=== PATIENT | female | born 1970 | race Caucasian/White ===

== ENCOUNTER → 2020-03-05 | Outpatient (CLI) | payer SELFPAY ==
[2019-08-24 11:08] VITALS: BMI 43.2
--- NOTE | 2020-03-05 12:55 | ECHOD_ITS ---
Reason For Study: Murmur Procedure This was a 2D Doppler, Color Flow transthoracic echocardiogram. Exam performed in department. Left Ventricle Normal LV size. Left ventricular systolic function is normal. The estimated ejection fraction is 55 %. Normal diastology for age. No regional wall motion abnormalities noted. Right Ventricle Normal RV size. Normal systolic function. Atria Normal left atrium. Normal right atrium. Mitral Valve Normal mitral valve. Mild (1+) mitral valve insufficiency. Tricuspid Valve Normal tricuspid valve. Aortic Valve Normal aortic valve. Trisinus/trileaflet aortic valve. Pulmonic Valve Normal pulmonic valve. Great Vessels Normal aortic root. The pulmonary artery is normal size. Normal inferior vena cava. Pericardium/Pleural No pericardial effusion. MMode/2D Measurements & Calculations LVIDd: 4.6 cm IVSd: 1.0 cm Ao root diam: 3.6 cm LVIDs: 2.4 cm LVPWd: 1.1 cm RVDd: 3.4 cm FS: 48.5 % LAV(MOD-bp): 51.0 ml EDV(MOD-sp4): 92.0 ml EDV(MOD-sp2): 86.0 ml LAV(MOD-bp) Indexed: 27.3 ml/m2 ESV(MOD-sp4): 33.1 ml EF(MOD-sp2): 57.0 % LAV(MOD-sp2): 40.3 ml EF(MOD-sp4): 64.0 % LAV(MOD-sp4): 55.6 ml SV(MOD-sp4): 58.8 ml SV(MOD-sp2): 49.0 ml LA A4 area: 19.4 cm2 LA dimension(2D): 3.7 cm RA A4 area: 16.8 cm2 Doppler Measurements & Calculations MV E max shaun: 109.2 cm/sec Lat Peak E' Shaun: 11.1 cm/sec Med Peak E' Shaun: 10.5 cm/sec MV A max shaun: 75.9 cm/sec E/E' lat: 9.9 E/E' med: 10.4 MV E/A: 1.4 Ao V2 max: 172.7 cm/sec LV V1 max: 136.1 cm/sec PA V2 max: 93.9 cm/sec Ao max P.9 mmHg LV V1 max P.4 mmHg Interpretation Summary Normal LV size. Left ventricular systolic function is normal. The estimated ejection fraction is 55 %. Normal diastology for age. Structurally normal valves. Ordering Physician: Ramy Herrera Referring Physician: Ahsan Freeman Performed By: Erica Garduno RDCS
== END | disposition home or self-care (01) ==
PROVIDERS: PCP Family Medicine; Referring Provider Internal Medicine Cardiovascular Disease; Visit Provider Internal Medicine Cardiovascular Disease
DX: R01.1 Cardiac murmur, unspecified (principal); I10 Essential (primary) hypertension
CPT/HCPCS: 93306

== ENCOUNTER → 2020-09-10 14:12 | Outpatient (CLI) | payer SELFPAY ==
[2020-08-27 09:15] VITALS: BMI 43.2
[2020-09-10 16:11] LABS: Anion Gap 6 (5-15); BUN 14 mg/dL (7-18); BUN/Creat Ratio 17.3 RATIO (10-20); Chloride 105 mmol/L (98-107); Creatinine, Serum 0.81 mg/dL (0.55-1.02); EST Glomerular Filtration Rate 79 mL/min (>60); Est Glom Filt Rate - Afr Amer 96 mL/min (>60); Glucose 118 mg/dL (74-106); Potassium 3.2 mmol/L (3.5-5.1); Sodium Level 138 mmol/L (136-145)
[2020-09-20 20:08] LABS: Renin, Plasma 0.814 ng/mL/hr (0.167-5.380)
[2020-09-20 20:41] LABS: Aldosterone, Serum 7.3 ng/dL (0.0-30.0)
== END ==
PROVIDERS: PCP Family Medicine; Referring Provider Internal Medicine Cardiovascular Disease; Visit Provider Internal Medicine Cardiovascular Disease
DX: E87.6 Hypokalemia (principal); I10 Essential (primary) hypertension
CPT/HCPCS: 36415; 80048; 82088; 84244

== ENCOUNTER → 2020-09-19 15:38 | Outpatient (CLI) | payer SELFPAY ==
[2020-08-27 09:15] VITALS: BMI 43.2
[2020-09-19 19:09] LABS: Anion Gap 7 (5-15); BUN 17 mg/dL (7-18); Calcium,Total 8.8 mg/dL (8.5-10.1); Chloride 107 mmol/L (98-107); Creatinine, Serum 0.81 mg/dL (0.55-1.02); EST Glomerular Filtration Rate 79 mL/min (>60); Est Glom Filt Rate - Afr Amer 96 mL/min (>60); Glucose 90 mg/dL (74-106); Potassium 3.8 mmol/L (3.5-5.1); Sodium Level 138 mmol/L (136-145)
== END ==
PROVIDERS: PCP Family Medicine; Referring Provider Internal Medicine Cardiovascular Disease; Visit Provider Internal Medicine Cardiovascular Disease
DX: E87.6 Hypokalemia (principal)
CPT/HCPCS: 36415; 80048

== ENCOUNTER → 2020-10-07 13:52 | Outpatient (CLI) | payer SELFPAY ==
[2020-08-27 09:15] VITALS: BMI 43.2
[2020-10-07 15:55] LABS: Anion Gap 7 (5-15); BUN 18 mg/dL (7-18); BUN/Creat Ratio 23.2 RATIO (10-20); Calcium,Total 8.8 mg/dL (8.5-10.1); Chloride 104 mmol/L (98-107); Creatinine, Serum 0.78 mg/dL (0.55-1.02); EST Glomerular Filtration Rate 83 mL/min (>60); Est Glom Filt Rate - Afr Amer 101 mL/min (>60); Glucose 90 mg/dL (74-106); Sodium Level 139 mmol/L (136-145)
== END ==
PROVIDERS: PCP Family Medicine; Referring Provider Internal Medicine Cardiovascular Disease; Visit Provider Internal Medicine Cardiovascular Disease
DX: E87.6 Hypokalemia (principal)
CPT/HCPCS: 36415; 80048

== ENCOUNTER 2021-08-22 14:14 | Outpatient (CLI) | payer SELFPAY ==
[2021-08-22 16:04] LABS: Anion Gap 4 (5-15); BUN 15 mg/dL (7-18); BUN/Creat Ratio 17.4 RATIO (10-20); Calcium,Total 8.8 mg/dL (8.5-10.1); Chloride 106 mmol/L (98-107); Creatinine, Serum 0.86 mg/dL (0.55-1.02); EST Glomerular Filtration Rate 74 mL/min (>60); Est Glom Filt Rate - Afr Amer 89 mL/min (>60); Glucose 100 mg/dL (74-106); Potassium 3.7 mmol/L (3.5-5.1); Sodium Level 139 mmol/L (136-145)
== END 2021-08-22 23:59 | disposition home or self-care (01) ==
PROVIDERS: PCP Family Medicine; Visit Provider Internal Medicine Cardiovascular Disease
DX: I10 Essential (primary) hypertension (principal)
CPT/HCPCS: 36415; 80048

== ENCOUNTER → 2024-06-27 | Outpatient (CLI) | payer SELFPAY ==
[2024-06-27 15:02] LABS: Anion Gap 5 (5-15); BUN 15 mg/dL (7-18); BUN/Creat Ratio 17.8 RATIO (10-20); Calcium,Total 9.1 mg/dL (8.5-10.1); Chloride 108 mmol/L (98-107); Creatinine, Serum 0.84 mg/dL (0.55-1.02); EST Glomerular Filtration Rate 75 mL/min (>60); Est Glom Filt Rate - Afr Amer 90 mL/min (>60); Glucose 96 mg/dL (74-106); Magnesium 2.1 mg/dL (1.6-2.6); Potassium 3.7 mmol/L (3.5-5.1); Sodium Level 142 mmol/L (136-145)
== END | disposition home or self-care (01) ==
PROVIDERS: PCP Nurse Practitioner Family; Referring Provider Internal Medicine Cardiovascular Disease; Visit Provider Internal Medicine Cardiovascular Disease
DX: I10 Essential (primary) hypertension (principal)
CPT/HCPCS: 36415; 80048; 83735; 84443

== ENCOUNTER → 2025-05-24 | Outpatient (CLI) | payer SELFPAY ==
--- NOTE | 2025-05-24 14:20 | CT_ITS ---
PROCEDURE: SINUS/FACIAL BONE 05/24/2025 REASON FOR EXAM: R NASAL MASS TECHNIQUE: Procedure Code: CTSI Modality: CT Procedure: SINUS/FACIAL BONE Coronal and Sagittal reconstruction series were provided. One or more dose reduction techniques were used (e.g., Automated exposure control, adjustment of the mA and/or kV according to patient size, use of iterative reconstruction technique). RADIATION DOSE SUMMARY: CTDlvol: 28.14 mGy DLP: 711.01 mGycm COMPARISON: None FINDINGS: There is a 1.4 cm x 3 cm by 3 cm polypoid mass in the posterior aspect of the right nasal cavity extending into the right posterior nasopharynx. Frontal: Frontal sinuses clear. Ethmoid: Unremarkable Sphenoid: Unremarkable Maxillary: Minimal mucosal thickening along the inferior anterior wall of the right maxillary sinus. Turbinates: Unremarkable Nasal Septum: Minimal left deviation. Mastoids/Middle Ears: Clear CT/Sinus/Facial Bone IMPRESSION: 1.4 cm 3 cm 3 cm polypoid mass in the posterior aspect of the right nasal cavit y extending to the right posterior nasopharynx. This may represent either polyposis versus possible mass. Clinical correlation is recommended. Reading Location: [place] [id number]
--- OUTSIDE RECORDS SUMMARY | 2025-05-24 17:11 | XMS RPT_ITS | CCD ---
Author Organization [facility] Care Team Providers Care Hvac Operations Technician Name Role Phone MD Herrera Cyril S Unavailable PHYSICIAN, NONE Primary Care Physician Unavailab le PHYSICIAN, NONE Primary Care Unavailable NUBIA FABIAN, CHERELLE Attending Unavailable NUBIA FABIAN, CHERELLE Attending Unavailable PHYSICIAN, NONE Primary Care Unavailable JULEE TRAN, LESLIE Dutton Attending Colten osborn PHYSICIAN, NONE Primary Care Unavailable PHYSICIAN, NONE Primary Care Unavailable OCTAVIANO SOSA Attending Unavailable NUBIA FABIAN, CHERELLE Attending Unavailable PHYSICIAN, NONE Primary Care Unavailable JULEE TRAN, LESLIE Dutton Attending Colten osborn PHYSICIAN, NONE Primary Care Unavailable AHSAN REDMAN DO Primary Care Physician [phone] AHSAN REDMAN DO Primary Care Unavailable JIM FABIAN, EDU Attending Unavailable JIM FABIAN, EDU Attending Unavailable AHSAN REDMAN DO Primary Care Unavailable Ramy Herrera Attending Unavailable Ramy Herrera Referring Unavailable Jory MCDONALD, Sanjuana Vásquez Primary Care Unavailabl e Ramy Herrera Attending Unavailable Ahsan Redman Primary Care Unavailable Ahsan Redman Referring Unavailable Allergies Allergy Classification Reported Allergen(s) Allergy Type Date of Onset Reaction(s) Facility (9 sources) amLODIPine; Translations: [Amlodipine] Drug Allergy 6 Malaise (finding) [facility] Work Phone: (2 sources) NONE KNOWN; Translations: [NONE KNOWN] allergy to substance 6 [facility] Work Phone: (7 sources) Aspirin; Translations: [aspirin] Drug Allergy Dyspnea (finding) [facility] (1 source) Aspirin Drug Allergy 5 [facility] Repository Medications Current Medications Medication Drug Class(es) Dates Sig (Normalized) Sig (Original) acetaminophen 500 mg oral powder (1 source) Start: 04-24-2024 acetaminophen 500 mg oral powder 2 packet(s), Oral, q6h, PRN as needed for pain, # 12 packet(s), 0 Refill(s), Pharmacy: [id number], 152.4, cm, 04/24/24 10:41:00 EST, Height, kg, 04/24/24 10:41:00 EST, Dosing Weight Start Date: 04/24/24 Status: Ordered Ascorbic Acid (7 sources) Vitamin C Start: 06-24-2022 Vitamin C qDay, 0 Refill(s) Start Date: 06/24/22 Status: Ordered Cholecalciferol (7 sources) Vitamin D Start: 06-24-2022 Vitamin D (3) 45 units oral capsule 0 Refill(s) Start Date: 06/24/22 Status: Ordered doxycycline hyclate 100 mg oral capsule (4 sources) Tetracycline-class Drug Start: 06-24-2022 End: 07-08-2022 doxycycline hyclate 100 mg oral capsule Dose : 100 mg = 1 cap(s), Oral, BID, X 14 day(s), # 28 cap(s), 0 Refill(s), 07/08/22 13:47:00 EST, Pharmacy: [id number], 152, cm, 06/24/22 13:18:00 EST, Height, 87.7 Start Date: 06/24/22 Stop Date: 07/08/22 Status: Ordered ferrous sulfate 325 mg oral tablet (7 sources) Start: 06-24-2022 IRON (ferrous sulfate 325 mg) 65 mg oral tablet Dose : 325 mg = 1 tab(s), Oral, BIDM, Take with food., # 60 tab(s), 3 Refill(s) Start Date: 06/24/22 Status: Ordered ibuprofen 600 mg oral tablet (1 source) Nonsteroidal Anti-inflammatory Drug Start: 04-24-2024 ibuprofen 600 mg oral tablet Dose : 600 mg = 1 tab(s), Oral, q6h, PRN for pain, Take with food or milk., # 20 tab(s), 0 Refill(s), Pharmacy: [facility], 152.4, cm, 04/24/24 10:41:00 EST, Height, kg, 04/24/24 10:41:00 EST, Dosing Weight Start Date: 04/24/24 Status: Ordered lisinopril 40 mg oral tablet (10 sources) Angiotensin Converting Enzyme Inhibitor Start: 06-24-2022 take 1 tablet by mouth once daily lisinopril 40 mg oral tablet TAKE 1 TABLET BY MOUTH ONCE DAILY Start Date: 06/24/22 Status: Ordered Start: 07-24-2015 take 1 tablet by gayathri th once daily LISINOPRIL 10 MG TABS One tablet by mouth daily LISINOPRIL [id number] Ramy Herrera MD Start: 07-24-2015 take 1 tablet by gayathri th once daily LISINOPRIL 20 MG TABS One tablet by mouth daily KRISTELINOPRIL [id number] Ramy Herrera MD Start: 07-24-2015 take 1 tablet by gayathri th once daily LISINOPRIL 40 MG TABS One tablet by mouth daily LISINOPRIL [id number] Ramy Herrera MD metoprolol tartrate 100 mg oral tablet (8 sources) beta-Adrenergic Annika Start: 06-24-2022 take 1 tablet by mouth once daily Metoprolol Succinate ER 100 mg oral TABLET extended release TAKE 1 TABLET BY MOUTH ONCE DAILY Start Date: 06/24/22 Status: Ordered Start: 07-19-2015 take 1 tablet by gayathri th once daily METOPROLOL SUCCINATE ER 100 MG [id number] One tablet by mouth daily METOPROLOL SUCCINATE [id number] Betty Chairez RN Multivitamin preparation (7 sources) Start: 06-24-2022 take 1 tablet by mouth once daily Multivitamin Dose = 1 tab(s), Oral, Daily, 0 Refill(s) Start Date: 06/24/22 Status: Ordered 24 hr NIFEdipine 90 mg extended release oral tablet (11 sources) Dihydropyridine Calcium Channel Annika Start: 06-24-2022 take 1 tablet by mouth once daily NIFEdipine (Eqv-Adalat CC) 90 mg oral tablet, extended release TAKE 1 TABLET BY MOUTH ONCE DAILY Start Date: 06/24/22 Status: Ordered Start: 03-10-2016 take 1 tablet by gayathri th once daily NIFEDICAL XL 30 MG [id number] One tablet by mouth daily NIFEDIPINE [id number] Ramy Herrera MD Start: 03-10-2016 take 1 tablet by gayathri once daily NIFEDICAL XL 60 MG [id number] One tablet by mouth daily NIFEDIPINE [id number] Ramy Herrera MD Start: 07-19-2015 End: 03-03-2016 take 1 tablet by mouth once daily NIFEDIPINE ER 90 MG [id number] One tablet by mouth daily NIFEDIPINE [id number] Betty Chairez RN potassium chloride 10 meq or al tablet (11 sources) Start: 06-24-2022 Potassium Chlo ride (Eqv-K-Tab) 10 mEq oral tablet, extended release TAKE 1 TABLET BY MOUTH TWICE DAILY Start Date: 06/24/22 Status: Ordered Start: 08-23-2015 End: 09-03-2016 take 1 tablet by mouth once daily POTASSIUM CHLORIDE ER 10 MEQ CR-TABS One tablet by mouth daily POTASSIUM CHLORIDE [id number] Ramy Herrera MD Red Yeast Rice 600 mg oral capsule (7 sources) Start: 06-24-2022 Red Yeast Rice 600 mg oral capsule Dose : 1,200 mg = 2 cap(s), Oral, TIDM, 0 Refill(s) Start Date: 06/24/22 Status: Ordered spironolactone 25 mg oral tablet (7 sources) Aldosterone Antagonist Start: 06-24-2022 spironolactone 25 mg oral tablet Dose : 25 mg = 1 tab(s), Oral, qDayM, 0 Refill(s) Start Date: 06/24/22 Status: Ordered Completed/Discontinued Medications Medication Drug Class(es) Dates Sig (Normalized) Sig (Original) B [id number] ACID (1 source) Start: 07-24-2015 take 1 tablet by mouth once daily STRESS FORMULA TABS One tablet by mouth daily B [id number] ACID [id number] Ramy Herrera MD Problems Active Problems Problem Classification Problem Date Documented Date Episodic/Chronic Cardiac dysrhythmias (8 sources) Palpitations; Translations: [Palpitations] Onset: 09-03-2016 09-03-2016 Episodic Essential hypertension (9 sources) Hypertensive disorder; Translations: [Essential (primary) hypertension] Onset: 07-19-2015 07-19-2015 Chronic Immunizations and screening for infectious disease (2 sources) Encounter for screening for human papillomavirus (HPV); Translations: [Encounter for screening for human papillomavirus (HPV)] Onset: 06-24-2022 Episodic Menstrual disorders (2 sources) Excessive and frequent menstruation with regular cycle; Translations: [Excessive and frequent menstruation with regular cycle] Onset: 04-24-2024 Chronic Nonmalignant breast conditions (4 sources) Acute mastitis 07-01-2022 Episodic Other nutritional; endocrine; and metabolic disorders (1 source) Body mass index (BMI) 37.0-37.9, adult; Translations: [Body mass index (BMI) 37.0-37.9, adult] Onset: 09-03-2015 09-03-2016 Chronic Other nutritional; endocrine; and metabolic disorders (1 source) Body mass index (BMI) 36.0-36.9, adult; Translations: [Body mass index (BMI) 36.0-36.9, adult] Onset: 09-03-2015 09-03-2015 Chronic Other nutritional; endocrine; and metabolic disorders (7 sources) Body mass index 40+ - severely obese 06-24-2022 Chronic Other screening for suspected conditions (not mental disorders or infectious disease) (3 sources) Electrocardiogram abnormal; Translations: [Encounter for screening for malignant neoplasm of cervix] Onset: 07-19-2015 07-19-2015 Episodic Past or Other Problems Problem Classification Problem Date Documented Da te Episodic/Chronic Fluid and electrolyte disorders (1 source) Hypokalemia; Translations: [Hypokalemia] Onset: 07-24-2015 07-24-2015 Episodic Nonspecific chest pain (2 sources) Chest pain; Translations: [Chest pain, unspecified] Onset: 07-24-2015 Resolved: 09-03-2016 09-03-2016 Episodic Residual codes; unclassified (1 source) FH: Hypertension; Translations: [Family history of ischemic heart disease and other diseases of the circulatory system] 07-24-2015 Episodic Results Test Name Value Interpretation Reference Range Facility Basic Metabolic Profile (BMP )on 06-27-2024 BUN/CRE 17.8 RATIO Normal 10-20 [facility] Comment on above: Performed By: #### L 501.9520, L501.5200, L500.2500 #### [facility] [address] [place], [address] CA,Total 9.1 mg/dL Normal 8.5-10.1 [facility] Comment on above: Performed By: #### L 501.9520, L501.5200, L500.2500 #### [facility] [address] [place], [address] Chloride [Moles/Vol] 108 mmol/L High 98-107 [facility] Comment on above: Performed By: #### L 501.9520, L501.5200, L500.2500 #### [facility] [address] [place], [address] CO2 [Moles/Vol] 28.0 mmol/L Normal 21.0-32.0 [facility] Comment on above: Performed By: #### L 501.9520, L501.5200, L500.2500 #### [facility] [address] [place], [address] Creatinine [Mass/Vol] 0.84 mg/dL Normal 0.55-1.02 [facility] Comment on above: Result Comment: The validity of the calculated GFR GFRAA in patients over 70 years has not been determined. Clinical correlation is essential. Performed By: #### L 501.9520, L501.5200, L500.2500 #### [facility] [address] [place], [address] EST GFR - AA 90 mL/min Normal >60 [facility] Comment on above: Result Comment: Afri can Algerian GFR Calc Performed By: #### L 501.9520, L501.5200, L500.2500 #### [facility] [address] [place], [address] GAP 5 Normal 5-15 [facility] Comment on above: Performed By: #### L 501.9520, L501.5200, L500.2500 #### [facility] [address] [place], [address] GFR/1.73 sq M.predicted among non-blacks MDRD (S/P/Bld) [Vol rate/Area] 75 mL/min/{1.73_m2} Normal >60 [facility] Comment on above: Result Comment: Non- GFR Calc Performed By: #### L 501.9520, L501.5200, L500.2500 #### [facility] [address] [place], [address] Glucose [Mass/Vol] 96 mg/dL Normal 74-106 [facility] Comment on above: Performed By: #### L 501.9520, L501.5200, L500.2500 #### [facility] [address] [place], [address] Potassium [Moles/Vol] 3.7 mmol/L Normal 3.5-5.1 [facility] Comment on above: Performed By: #### L 501.9520, L501.5200, L500.2500 #### [facility] [address] [place], [address] Sodium [Moles/Vol] 142 mmol/L Normal 136-145 [facility] Comment on above: Performed By: #### L 501.9520, L501.5200, L500.2500 #### [facility] [address] [place], [address] Urea nitrogen [Mass/Vol] 15 mg/dL Normal 7-18 [facility] Comment on above: Performed By: #### L 501.9520, L501.5200, L500.2500 #### [facility] [address] [place], [address] Cardiology Visit Reporton Cardiology Visit Report [facility] [address] [place] [address] OFFICE VISIT Date of Service: 06/27/24 MR#: [id number] Acct: [id number] Name: LILIA OLEA I Rep #: [id number] : 1970 Provider: Dr. Ramy Herrera MD Age/Sex: 53/F Location: [facility] Status: Signed HPI HPI History of Present Illness Details: LILIA OLEA, is a 52 F who presents to the office today for a cardiovascular follow-up visit. She is a lady with a history of hypertension, palpitations, and hypokalemia. She has been having her blood pressure checked at home and they have been in the normotensive range. She has been compliant with all her medications. You remember we had previously taken her off her potassium supplementation and added spironolactone but her repeat potassium was still low and this has been restarted. From a cardiac standpoint, the patient is doing well. She does have occasional palpitation. She denies chest pain, pressure or heaviness. She denies SOB, Orthopnea, and PND. She does not have bleeding issues; no blood in urine, stool or nosebleeds. She denies any decrease in energy level, myalgias, or claudication. She does have occasional bilateral ankle edema-this is relieved with elevation. She denies sudden weight gain. She denies dizziness, lightheadedness, syncopal or near syncopal episodes, and headaches.She does bring blood pressures from home, which demonstrate well controlled readings. Intake Vital Signs 04/20/23 13:03 06/27/24 13:22 Height 4 ft 9 in 4 ft 9 in Weight: 201 lb BMI 43.4 BP 159/83 H Blood Pressure Location Lt brachial Position Sitting Respiration 16 Pulse 59 L Pulse Source NIBP Intake Visit Reasons: 1 Y FU Form Builder Required: No Accompanied by: Is patient in pain?: No Allergies amlodipine Adverse Reaction (Intermediate, Verified 06/27/24 13:23) I felt awful on that aspirin Adverse Reaction (Verified 06/27/24 13:23) Shortness of breath Medications ???Medication ???Instructions ???Recorded ???Confirmed ???Type lisinopril 40 mg tablet 40 mg PO QDAY 08/31/17 06/27/24 History ascorbic acid (vitamin C) 1,000 mg 1 g PO QDAY 09/07/17 06/27/24 History tablet multivitamin, stress formula 1 tab PO QDAY 09/07/17 06/27/24 History ferrous sulfate 325 mg (65 mg 325 mg PO DAILY 08/24/19 06/27/24 History iron) tablet cholecalciferol (vitamin D3) 25 5,000 unit PO DAILY 04/03/21 06/27/24 History mcg (1,000 unit) capsule red yeast rice 600 mg capsule 2,400 mg PO DAILY 04/03/21 06/27/24 History potassium chloride 10 mEq 10 meq PO DAILY #180 tabs 08/18/21 06/27/24 Rx tablet,extended release metoprolol succinate 100 mg 100 mg PO DAILY 04/14/22 06/27/24 History tablet,extended release 24 hr spironolactone 25 mg tablet 25 mg PO DAILY #90 TABLETS 02/22/24 06/27/24 Rx nifedipine 90 mg tablet,extended 90 mg PO DAILY #90 tabs 06/05/24 06/27/24 Rx release Have you fallen in the past year?: No PFSH Medical History COVID-19 (05/2020) Obesity Essential (primary) hypertension Hypokalemia Palpitations Family History Mother Kidney disease Hypertension Brother Hypertension Sister Hypertension Sister Hypertension Social History Smoking Status: Never smoker alcohol intake: never substance use type: does not use caffeine: No what type of physical activity do you participate in: none seatbelt use: always do you feel safe at home: Yes ROS Const Const: Positive for fatigue; Negative for weakness, headache(s) or weight gain Eyes Eyes: Negative for blind spots, loss of peripheral vision, transient loss of vision, blurry vision, change in vision, double vision, floaters or tunnel vision ENT ENT: Negative for headache(s), dizziness, Nosebleed/epistaxis, balance problems or neck pain Cardio Chest Pain: No Palpitations: No Edema: Bilateral (occasional bilateral ankle-relieved with elevation) and None Muscle aches with walking: None Resp Respiratory: Negative for SOB with activity, SOB at rest or SOB orthopnea SOB lying down GI GI: Negative nausea, vomiting, heartburn, bloating, vomiting blood/hematemesis, bright, red blood in stools or black,tarry stools Musc Musc: Positive for muscle aches/ myalgia (occasional lower back) and joint pain (occasional lower back); Negative for muscle weakness or balance problems Neuro Neuro: Negative for dizziness, lightheadedness, near syncope, syncope, orthostatic symptoms, frequent falls, headache(s), weakness, blurry vision or double vision Doroteo Hematologic/Lymphatic: Negative for easy bleeding or easy bruising Endo Endo: Positive for fatigue (more content not included)... Normal [facility] Magnesiumon 06-27-2024 Magnesium [Mass/Vol] 2.1 mg/dL Normal 1.6-2.6 [facility] Comment on above: Performed By: #### L 501.9520, L501.5200, L500.2500 #### [facility] [address] [place], [place], [address] Thyroid Stim Hormone (TSH)on 06-27-2024 TSH 1.400 uIU/mL Normal 0.358-3.740 [facility] Comment on above: Performed By: #### L 501.9520, L501.5200, L500.2500 #### [facility] [address] [place], [address] Final Surgical Pathology Rep [facility] 04-27-2024 Final Surgical Pathology Report . Pathology Reports Accession: Collected Date/Time: Received Date/Time: Pathologist: [id number] 04/24/2024 12:32 EST 04/26/2024 08:28 OSIRIS CEDILLO MD Final Surgical Pathology Report DIAGNOSIS: A. ENDOMETRIAL CURETTINGS: - FRAGMENTS OF LATE SECRETORY ENDOMETRIUM AND BLOOD CLOT. NO EVIDENCE OF MALIGNANCY B. ENDOMETRIAL POLYP: - FRAGMENTS OF ENDOMETRIAL POLYP IDENTIFIED C. LEFT BUTTOCK SKIN TAG: - COMPOUND NEVUS CLINICAL INFORMATION: Procedure: HYSTEROSCOPY, DILATION AND CURETTAGE Preoperative diagnosis: MENORRHAGIA, UTERINE POLYP Postoperative diagnosis: MENORRHAGIA, UTERINE POLYP SPECIMEN: A ENDOMETRIAL CURETTINGS B ENDOMETRIAL POLYP C LEFT BUTTOCK SKIN TAG GROSS DESCRIPTION: All parts labelled with patient name and [id number] A. Received in formalin labelled endometrial curettings Are multiple mata-brown hemorrhagic curettings aggregating to 4.5 x 2.2 x 1 cm. TS-2 B. Received in formalin labelled endometrial polyp are multiple pieces of mata amaro polyp aggregating to 2.8 x 2.5 x 1 cm. TS-3 C. Received in formalin labelled left buttock skin tag Is a unoriented ellipse of skin measuring 1.4 x 0.8 and excised to depth of 0.7 cm. Skin surface is a polanco predominantly smooth lesion measuring 1.1 x 0.7 cm. Excision margin inked black. TS-1 Amisha Salinas, Pathologists' Right Of Way Cutter (ASCP) Performed by AMISHA SALINAS MICROSCOPIC DESCRIPTION: The microscopic examination is performed, except in the case of Gross Only. Electronically Signed by Pathology Report verified by [facility] OSIRIS VIVEROS Sign out Date: 04/27/2024 15:21 Performing Lab: [facility], [address] [place] [address] Pathology Dept Disclaimer If ancillary studies were utilized, the following Laboratory Developed Test (LDT) disclaimer will apply: Under CLIA requirements, [facility] is qualified to perform high complexity testing. For all ancillary stains, positive and negative controls stain Pathology Reports Accession: Collected Date/Time: Received Date/Time: Pathologist: [id number] 04/24/2024 12:32 EST 04/26/2024 08:28 EST OSIRIS VIVEROS MD Disclaimer appropriately. Performance characteristics of immunohistochemical and chromogenic in-situ hybridization tests have been determined by [facility]. These tests are used for clinical purposes, They should not be regarded as investigational or for research. Normal [facility] ABO/Rh (Gel)on 04-24-2024 ABO/Rh Interp Negative Invalid Interpretation Code [facility] Comment on above: Performed By: #### A BSGEL, ABOGEL #### [facility] [address] [place], [place] [address] ABS (Gel)on 04-24-2024 ABSC Interp (Gel) Negative Normal [facility] Comment on above: Performed By: #### A BSGEL, ABOGEL #### [address] [address] LABORATORYOrdered By: Carolina Leiva on 04-24-2024 ABO and Rh group Nom (Bld) Blood group A Rh(D) negative Invalid Interpretation Code AO BB Auto SS Blood group antibody screen Ql Negative ABSC (04/24/24 11:01 AM) Normal AO BB Auto SS .Auto Diffon 04-19-2024 Basophil, Absolute 0.1 10 3/mcL Normal 0.0-0.2 [facility] Comment on above: Performed By: #### C BC, BMP, ADIFF, ANEU, GFR #### [address] [address] Basophils/100 WBC (Bld) 0.8 % Normal 0.0-2.5 [facility] Comment on above: Performed By: #### C BC, BMP, ADIFF, ANEU, GFR #### [address] [address] Eosinophil, Absolute 0.1 10 3/mcL Normal 0.0-0.7 [facility] Comment on above: Performed By: #### C BC, BMP, ADIFF, ANEU, GFR #### [address] [address] Eosinophils/100 WBC (Bld) 1.7 % Normal 0.0-7.0 [facility] Comment on above: Performed By: #### C BC, BMP, ADIFF, ANEU, GFR #### [address] [address] Lymphocyte, Absolute 1.5 10 3/mcL Normal 0.9-4.3 [facility] Comment on above: Performed By: #### C BC, BMP, ADIFF, ANEU, GFR #### [address] [address] Lymphocytes/100 WBC (Bld) 16.7 % Low 20.0-40.0 [facility] Comment on above: Performed By: #### C BC, BMP, ADIFF, ANEU, GFR #### [address] [address] Monocyte, Absolute 0.7 10 3/mcL Normal 0.1-1.4 [facility] Comment on above: Performed By: #### C BC, BMP, ADIFF, ANEU, GFR #### [address] [address] Monocytes/100 WBC (Bld) 8.2 % Normal 2.0-13.0 [facility] Comment on above: Performed By: #### C BC, BMP, ADIFF, ANEU, GFR #### [address] [address] Neutrophils/100 WBC (Bld) 72.6 % Normal 50.0-75.0 [facility] Comment on above: Performed By: #### C BC, BMP, ADIFF, ANEU, GFR #### [address] [address] .GFRon 04-19-2024 GFR 98 ml/min/1.73sqm Normal [facility] Comment on above: Result Comment: GFR Population mean for , Non- Americans Ages 20-29 = 116 mL/min/1.73 sq.m. Ages 30-39 = 107 mL/min/1.73 sq.m. Ages 40-49 = 99 mL/min/1.73 sq.m. Ages 50-59 = 93 mL/min/1.73 sq.m. Ages 60-69 = 85 mL/min/1.73 sq.m. Ages 70+ = 75 mL/min/1.73 sq.m. Chronic Kidney Disease: Less than 60 mL/min/1.73 square meters End Stage Renal Disease: Less than 15 mL/min/1.73 square meters Performed By: #### C BC, BMP, ADIFF, ANEU, GFR #### [address] [address] GFR Non- 81 ml/min/1.73sqm Normal [facility] Comment on above: Result Comment: GFR Population mean for , Non- Americans Ages 20-29 = 116 mL/min/1.73 sq.m. Ages 30-39 = 107 mL/min/1.73 sq.m. Ages 40-49 = 99 mL/min/1.73 sq.m. Ages 50-59 = 93 mL/min/1.73 sq.m. Ages 60-69 = 85 mL/min/1.73 sq.m. Ages 70+ = 75 mL/min/1.73 sq.m. Chronic Kidney Disease: Less than 60 mL/min/1.73 square meters End Stage Renal Disease: Less than 15 mL/min/1.73 square meters Performed By: #### C BC, BMP, ADIFF, ANEU, GFR #### [address] [address] .NEUABSon 04-19-2024 Neutrophil, Absolute 6.4 10 3/mcL Normal 2.3-8.1 [facility] Comment on above: Performed By: #### C BC, BMP, ADIFF, ANEU, GFR #### [address] [address] BMPon 04-19-2024 BUN/Creatinine Ratio 20 ratio Normal 7-27 [facility] Comment on above: Performed By: #### C BC, BMP, ADIFF, ANEU, GFR #### [address] [address] Calcium [Mass/Vol] 9.4 mg/dL Normal 8.4-10.2 [facility] Comment on above: Performed By: #### C BC, BMP, ADIFF, ANEU, GFR #### [address] [address] Chloride [Moles/Vol] 106 mmol/L Normal 98-107 [facility] Comment on above: Performed By: #### C BC, BMP, ADIFF, ANEU, GFR #### [address] [address] CO2 [Moles/Vol] 25 mmol/L Normal 22-29 [facility] Comment on above: Performed By: #### C BC, BMP, ADIFF, ANEU, GFR #### [address] [address] Creatinine [Mass/Vol] 0.75 mg/dL Normal 0.55-1.02 [facility] Comment on above: Result Comment: Test ing performed on Siemens Dimension EXL analyzer using a modified kinetic Timmy technique. Performed By: #### C BC, BMP, ADIFF, ANEU, GFR #### [address] [address] Electrolyte Balance 9.0 mEq/L Normal 4.0-15.0 [facility] Comment on above: Performed By: #### C BC, BMP, ADIFF, ANEU, GFR #### [place] [id number] Glucose [Mass/Vol] 88 mg/dL Normal 70-105 [facility] Comment on above: Performed By: #### C BC, BMP, ADIFF, ANEU, GFR #### [address] [address] Potassium [Moles/Vol] 4.3 mmol/L Normal 3.5-5.1 [facility] Comment on above: Performed By: #### C BC, BMP, ADIFF, ANEU, GFR #### [address] [address] Sodium [Moles/Vol] 140 mmol/L Normal 136-145 [facility] Comment on above: Performed By: #### C BC, BMP, ADIFF, ANEU, GFR #### [address] [address] Urea nitrogen [Mass/Vol] 15 mg/dL Normal 7-18 [facility] Comment on above: Performed By: #### C BC, BMP, ADIFF, ANEU, GFR #### [address] [address] CBCon 04-19-2024 Erythrocyte distribution width (RBC) [Ratio] 13.7 % Normal 11.5-15.5 [facility] Comment on above: Order Comment: Pre-A dmission Testing Performed By: #### C BC, BMP, ADIFF, ANEU, GFR #### [address] [address] Hematocrit (Bld) [Volume fraction] 38.6 % Normal 34.0-46.0 [facility] Comment on above: Order Comment: Pre-A dmission Testing Performed By: #### C BC, BMP, ADIFF, ANEU, GFR #### [address] [address] Hgb 13.1 G/dL Normal 12.0-16.0 [facility] Comment on above: Order Comment: Pre-A dmission Testing Performed By: #### C BC, BMP, ADIFF, ANEU, GFR #### [place] [address] MCH (RBC) [Entitic mass] 32.0 pg Normal 27.0-33.0 [facility] Comment on above: Order Comment: Pre-A dmission Testing Performed By: #### C BC, BMP, ADIFF, ANEU, GFR #### [address] [address] MCHC 33.9 G/dL Normal 32.0-36.0 [facility] Comment on above: Order Comment: Pre-A dmission Testing Performed By: #### C BC, BMP, ADIFF, ANEU, GFR #### [address] [address] MCV (RBC) [Entitic vol] 94.4 fL Normal 80.0-99.0 [facility] Comment on above: Order Comment: Pre-A dmission Testing Performed By: #### C BC, BMP, ADIFF, ANEU, GFR #### [address] [address] Platelet 296 10 3/mcL Normal 150-450 [facility] Comment on above: Order Comment: Pre-A dmission Testing Performed By: #### C BC, BMP, ADIFF, ANEU, GFR #### [address] [address] Platelet mean volume (Bld) [Entitic vol] 8.6 fL Normal 6.6-10.5 [facility] Comment on above: Order Comment: Pre-A dmission Testing Performed By: #### C BC, BMP, ADIFF, ANEU, GFR #### [address] [address] RBC 4.09 10 6/mcL Low 4.10-5.30 [facility] Comment on above: Order Comment: Pre-A dmission Testing Performed By: #### C BC, BMP, ADIFF, ANEU, GFR #### [address] [address] WBC 8.8 10 3/mcL Normal 4.5-10.8 [facility] Comment on above: Order Comment: Pre-A dmission Testing Performed By: #### C BC, BMP, ADIFF, ANEU, GFR #### [address] [address] LABORATORYOrdered By: SYSTEM SYSTEM on 04-19-2024 Basophils (Bld) [#/Vol] 0.1 103/mcL Normal 0.0 - 0.2 10^3/mcL AO Workflow SS Basophils/100 WBC (Bld) 0.8 % Normal 0.0 - 2.5 % AO Workflow SS Calcium [Mass/Vol] 9.4 mg/dL Normal 8.4 - 10. 2 mg/dL AO ADM SS Chloride [Moles/Vol] 106 mmol/L Normal 98 - 10 7 mmol/L AO ADM SS CO2 [Moles/Vol] 25 mmol/L Normal 22 - 29 mmol/L AO ADM SS Creatinine [Mass/Vol] 0.75 mg/dL Normal 0.55 - 1.02 mg/dL AO ADM SS Comment on above: Interpretive Data: T esting performed on Siemens Dimension EXL analyzer using a modified kinetic Timmy technique. Electrolyte Balance 9.0 mEq/L Normal 4.0 - 15 .0 mEq/L AO ADM SS Eosinophil, Absolute 0.1 103/mcL Normal 0.0 - 0 .7 10^3/mcL AO Workflow SS Eosinophils/100 WBC (Bld) 1.7 % Normal 0.0 - 7.0 % AO Workflow SS Erythrocyte distribution width (RBC) [Ratio] 13.7 % Normal 11.5 - 15.5 % AO Workflow SS GFR/1.73 sq M.predicted among blacks MDRD (S/P/Bld) [Vol rate/Area] 98 ml/min/1.73sqm Invalid Interpretation Code AO Chemistry S Comment on above: Interpretive Data: GFR Population mean for , Non- Americans Ages 20-29 = 116 mL/min/1.73 sq.m. Ages 30-39 = 107 mL/min/1.73 sq.m. Ages 40-49 = 99 mL/min/1.73 sq.m. Ages 50-59 = 93 mL/min/1.73 sq.m. Ages 60-69 = 85 mL/min/1.73 sq.m. Ages 70+ = 75 mL/min/1.73 sq.m. Chronic Kidney Disease: Less than 60 mL/min/1.73 square meters End Stage Renal Disease: Less than 15 mL/min/1.73 square meters GFR/1.73 sq M.predicted among non-blacks MDRD (S/P/Bld) [Vol rate/Area] 81 ml/min/1.73sqm Invalid Interpretation Code AO Chemistry S Comment on above: Interpretive Data: GFR Population mean for , Non- Americans Ages 20-29 = 116 mL/min/1.73 sq.m. Ages 30-39 = 107 mL/min/1.73 sq.m. Ages 40-49 = 99 mL/min/1.73 sq.m. Ages 50-59 = 93 mL/min/1.73 sq.m. Ages 60-69 = 85 mL/min/1.73 sq.m. Ages 70+ = 75 mL/min/1.73 sq.m. Chronic Kidney Disease: Less than 60 mL/min/1.73 square meters End Stage Renal Disease: Less than 15 mL/min/1.73 square meters Glucose [Mass/Vol] 88 mg/dL Normal 70 - 105 mg/dL AO ADM SS Hematocrit (Bld) [Volume fraction] 38.6 % Normal 34.0 - 46.0 % AO Workflow SS Hemoglobin (Bld) [Mass/Vol] 13.1 G/dL Normal 12.0 - 16.0 G/dL AO Workflow SS Lymphocytes (Bld) [#/Vol] 1.5 103/mcL Normal 0.9 - 4.3 10^3/mcL AO Workflow SS Lymphocytes/100 WBC (Bld) 16.7 % Low 20.0 - 40.0 % AO Workflow SS MCH (RBC) [Entitic mass] 32.0 pg Normal 27.0 - 33.0 pg AO Workflow SS MCHC 33.9 G/dL Normal 32.0 - 36.0 G/dL AO Workflow SS MCV (RBC) [Entitic vol] 94.4 fL Normal 80.0 - 99.0 fL AO Workflow SS Monocytes (Bld) [#/Vol] 0.7 103/mcL Normal 0.1 - 1.4 10^3/mcL AO Workflow SS Monocytes/100 WBC (Bld) 8.2 % Normal 2.0 - 13.0 % AO Workflow SS Neutrophils (Bld) [#/Vol] 6.4 103/mcL Normal 2.3 - 8.1 10^3/mcL AO Workflow SS Neutrophils/100 WBC (Bld) 72.6 % Normal 50.0 - 75.0 % AO Workflow SS Platelet mean volume (Bld) [Entitic vol] 8.6 fL Normal 6.6 - 10.5 fL AO Workflow SS Platelets (Bld) [#/Vol] 296 103/mcL Normal 150 - 450 10^3/mcL AO Workflow SS Potassium [Moles/Vol] 4.3 mmol/L Normal 3.5 - 5.1 mmol/L AO ADM SS RBC (Bld) [#/Vol] 4.09 106/mcL Low 4.10 - 5.3 0 10^6/mcL AO Workflow SS Sodium [Moles/Vol] 140 mmol/L Normal 136 - 145 mmol/L AO ADM SS Urea nitrogen [Mass/Vol] 15 mg/dL Normal 7 - 18 mg/dL AO ADM SS Urea nitrogen/Creatinine [Mass ratio] 20 ratio Normal 7 - 27 ratio AO ADM SS WBC (Bld) [#/Vol] 8.8 103/mcL Normal 4.5 - 10.8 10^3/mcL AO Workflow SS MA MAMMOGRAM DIAGNOSTIC LEFT W/TOMOon 08-06-2022 MA MAMMOGRAM DIAGNOSTIC LEFT W/CHON ORIGINAL FROM: LETICIA [address] [place], [place] [address] PROCEDURE FOR: LILIA OLEA [address] [place] [address] Home: PID#: [id number] Exam#: [id number] : 1970 Age: 51 TO: LESLIE LADD LPN INSTRUCTOR SIDEWALK INSPECTOR [address] [place], [place] [address] Fax: NO FAX EXAMINATION: DIAGNOSTIC DIGITAL LEFT BREAST MAMMOGRAM WITH TOMOSYNTHESIS, 08/06/2022 9:58 am TECHNIQUE: Diagnostic mammography of the left breast was performed with tomosynthesis. 2D standard and 3D tomosynthesis combination imaging performed through the left breast. Computer aided detection was utilized in the interpretation of this exam. Current study was also evaluated with a Computer Aided Detection (CAD) system. COMPARISON: 06/29/2022 HISTORY: ORDERING SYSTEM PROVIDED HISTORY: Reason for Exam: Irregular shadowing throughout left breast Follow-up left breast mastitis FINDINGS: BREAST DENSITY: Heterogeneously dense The global asymmetry in the left breast is less prominent compared to the previous exam. No significant masses, calcifications, or other findings. IMPRESSION: No mammographic evidence of malignancy. An ultrasound will be performed today and will be reported separately. BIRADS: MAMMOGRAM BI-RADS: 0: Needs addl evaluation RECALL: immediate RECALL TYPE: Left US LETTER SENT: Normal-Needs additional work up BI-RADS 0 Interpreted by: Victor Hugo Reid MD Preliminary Report By: Victor Hugo Reid MD Electronically signed By Victor Hugo Reid MD Dictated Date: 08/06/2022 11:56:41 AM Prelim Date: 08/06/2022 12:00:34 PM Sign Date: 08/06/2022 12:00:34 PM Ordering Provider: LESLIE LADD CLINICAL: ASYMETRIC DENSITY LEFT BREAST. Technical Proposal Writer: CLEO JENNINGS RT(R) (M) letter sent: Normal-Needs additional work up BI-RADS 0 Mammogram BI-RADS: 0 Indeterminate Normal [facility] [place] US BREAST LEFT LIMITEDon US BREAST LEFT LIMITED ORIGINAL FROM: [address] [address] PROCEDURE FOR: LILIA OLEA [address] [place] [address] Home: PID#: [id number] Exam#: [id number] : 1970 Age: 51 TO: LESLIE LADD LPN INSTRUCTOR SIDEWALK INSPECTOR [address] [place] [id number] Fax: NO FAX EXAMINATION: ULTRASOUND OF THE LEFT BREAST 08/06/2022 9:59 am TECHNIQUE: Color flow and real-time targeted ultrasound of the left breast retroareolar region and lower outer and lower inner quadrants were performed. COMPARISON: 06/29/2022 HISTORY: ORDERING SYSTEM PROVIDED HISTORY: Reason for Exam: Irregular shadowing throughout left breast 1 month follow-up left breast mastitis FINDINGS: The previously seen irregular hypoechoic shadowing areas in the left breast have resolved. There are a few dilated ducts. IMPRESSION: No sonographic evidence of malignancy. Clinical follow up is recommended. The patient may return to annual mammographic screening. BIRADS: MAMMOGRAM BI-RADS: 2: Benign finding RECALL: return to screening RECALL TYPE: mammo LETTER SENT: Normal BI-RADS 1 and 2 Interpreted by: Victor Hugo Reid MD Preliminary Report By: Victor Hugo Reid MD Electronically signed By Victor Hugo Reid MD Dictated Date: 08/06/2022 12:00:44 PM Prelim Date: 08/06/2022 12:06:19 PM Sign Date: 08/06/2022 12:06:19 PM Ordering Provider: LESLIE LADD CLINICAL: MASTODYNIA. Technical Proposal Writer: JOLYNN TRIPP [facility] letter sent: Normal BI-RADS 1 and 2 Ultrasound BI-RADS: 2 Benign Normal [facility] [place] [facility] Reporton 2022 [facility] . Pathology Reports Accession: Collected Date/Time: Received Date/Time: Pathologist: [id number] 06/24/2022 14:04 EST 06/25/2022 18:00 EST [facility] SPECIMEN: Specimen Description: Liquid Prep w/ HPV Specimen: Cervical Screening or Diagnostic: Screening RELEVANT HISTORY: LMP: 05/31/22 [id number] SPECIMEN ADEQUACY: SATISFACTORY FOR EVALUATION Endocervical/Transform ational zone component present INTERPRETATION/RESULTS : NEGATIVE FOR INTRAEPITHELIAL LESION OR MALIGNANCY HIGH RISK HPV TESTING: Event Code Result HPV Interp See Interp HPVN HPV Interp Text: High Risk HPV Typing: NEGATIVE HPV types 16, 18, 31, 33, 35, 39, 45, 51, 52, 56, 58, 59, 66 and 68 DNA were undetectable or below the pre-set threshold. The [facility]a High-Risk HPV DNA Test is not intended for use as a screening device for Pap normal women under age 30 and is not intended to substitute for regular Pap screening. The [place] High-Risk HPV DNA Test is designed to augment existing methods for the detection of cervical disease and should be used in conjunction with clinical information derived from other diagnostic and screening tests, physical examinations and full medical history in accordance with appropriate patient management procedures. NOTE: A negative result does not preclude the presence of HPV infection because results depend on adequate specimen collection, absence of inhibitors and sufficient DNA to be detected. As of: 07/02/22 11:45 EST COMMENT: This Pap Test was successfully processed and evaluated with the assistance of the [employer] Test Imaging System. Pathology Reports Accession: Collected Date/Time: Received Date/Time: Pathologist: [id number] 06/24/2022 14:04 EST 06/25/2022 18:00 EST Electronically Signed by Pathology report verified by [facility] Screened by: KK Electronically signed by Salma COTE (ASCP) Sign-Out Date: 07/02/2022 11:46 Performing Lab: [facility], [address] [place] [address] Pathology Dept Disclaimer The Pap test is a screening test for cervical cancer. As evidenced by published data, it is subject to both inherent false negative and false positive results. Your patient's results should be interpreted in context with pertinent clinical history including gynecological examination. Normal [facility] [place] HPVon 06-30-2022 HPV Interp Normal See Interp HPVN [facility] [place] Comment on above: Order Comment: Order placed by AP_HPV_ORDER rule from [id number] Result Comment: High Risk HPV Typing: NEGATIVE HPV types 16, 18, 31, 33, 35, 39, 45, 51, 52, 56, 58, 59, 66 and 68 DNA were undetectable or below the pre-set threshold. The [place] High-Risk HPV DNA Test is not intended for use as a screening device for Pap normal women under age 30 and is not intended to substitute for regular Pap screening. The [place] High-Risk HPV DNA Test is designed to augment existing methods for the detection of cervical disease and should be used in conjunction with clinical information derived from other diagnostic and screening tests, physical examinations and full medical history in accordance with appropriate patient management procedures. NOTE: A negative result does not preclude the presence of HPV infection because results depend on adequate specimen collection, absence of inhibitors and sufficient DNA to be detected. See Interp HPVN Performed By: #### H PV #### [address] [address] HPV Source Cervix Normal [facility] [place] Comment on above: Order Comment: Order placed by AP_HPV_ORDER rule from [id number] Performed By: #### H PV #### [address] [address] MA MAMMOGRAM DIAGNOSTIC BILA TERAL W/TOMOon 06-29-2022 MA MAMMOGRAM DIAGNOSTIC BILATERAL W/CHON ORIGINAL FROM: [address] [address] PROCEDURE FOR: LILIA OLEA [address] [place] [address] Home: PID#: [id number] Exam#: [id number] : 1970 Age: 51 [place]: [place] [address] [place], [place] [address] EXAMINATION: DIAGNOSTIC BILATERAL MAMMOGRAM WITH TOMOSYNTHESIS, 06/29/2022 12:45 pm TECHNIQUE: Tomosynthesis was performed as part of the diagnostic bilateral mammogram. 2D standard and 3D tomosynthesis combination imaging performed. Current study was also evaluated with a Computer Aided Detection (CAD) system. COMPARISON: None. HISTORY: Palpable lump and pain left breast 6 o'clock. Patient is currently on antibiotics and redness and tenderness has improved FINDINGS: BREAST DENSITY: Heterogeneously dense There is a 10 cm global asymmetry in the left breast central to the nipple. This correlates with the palpable lump. No other significant masses, calcifications, or other findings. IMPRESSION: The 10 cm global asymmetry in the left breast central to the nipple appears indeterminate. A left breast ultrasound performed today and reported separately. BIRADS: MAMMOGRAM BI-RADS: 0: Needs addl evaluation RECALL: immediate RECALL TYPE: Left US LETTER SENT: Abnormal-Needs additional work up BI-RADS 0 Interpreted by: Victor Hugo Reid MD Preliminary Report By: Victor Hugo Reid MD Electronically signed By Victor Hugo Reid MD Dictated Date: 06/29/2022 2:27:07 PM Prelim Date: 06/29/2022 2:29:27 PM Sign Date: 06/29/2022 2:29:27 PM Ordering Provider: OCTAVIANO SOSA CLINICAL: BASELINE LEFT BREAST PAIN. copy to: CHERELLE DELACRUZ MD, ph: [phone], fax: [phone] Technical Proposal Writer: KULDIP WALLACE RT (R) (M) (CT) letter sent: Abnormal-Needs additional work up BI-RADS 0 Mammogram BI-RADS: 0 Indeterminate Normal [facility] [place] US BREAST LEFT LIMITEDon US BREAST LEFT LIMITED ORIGINAL FROM: [address] [address] PROCEDURE FOR: LILIA OLEA [address] [place] [address] Home: PID#: [id number] Exam#: [id number] : 1970 Age: 51 TO: CHERELLE DELACRUZ MD [address] [place] [address] [address] [place] [place] [address] EXAMINATION: ULTRASOUND OF THE LEFT BREAST 06/29/2022 1:35 pm TECHNIQUE: Color flow and real-time targeted ultrasound of the left breast lower inner and lower outer quadrants were performed. COMPARISON: 06/29/2022 HISTORY: ORDERING SYSTEM PROVIDED HISTORY: Reason for Exam: suspected abscess. mastitis. Palpable painful lump left breast 6 o'clock. Patient reports the redness and tenderness is improving since being on antibiotics. FINDINGS: There is irregular hypoechoic shadowing tissue throughout the left breast. There are multiple dilated ducts with debris. There are multiple benign-appearing complicated cysts in the 6 o'clock area. These findings correlate with the mammographic asymmetry in the palpable lump. IMPRESSION: The irregular shadowing tissue throughout the left breast most likely represent infectious/inflammator y change and appears probably benign. No drainable fluid collections. Clinical follow-up and continued antibiotic therapy is recommended. A follow-up diagnostic left mammogram and left ultrasound are recommended to demonstrate resolution of the findings. BIRADS: MAMMOGRAM BI-RADS: 3: Probably benign RECALL: 1 month follow-up RECALL TYPE: Left mammo+US LETTER SENT: Probably Benign BI-RADS 3 Interpreted by: Victor Hugo Reid MD Preliminary Report By: Victor Hugo Reid MD Electronically signed By Victor Hugo Reid MD Dictated Date: 06/29/2022 2:29:36 PM Prelim Date: 06/29/2022 2:34:30 PM Sign Date: 06/29/2022 2:34:30 PM Ordering Provider: CHERELLE DELACRUZ CLINICAL: PALPABLE LUMP LEFT BREAST. copy to: AHSAN REDMAN MD, ph: [phone], fax: [phone] Technical Proposal Writer: JANNETH PINEDA RT(R) RDMS letter sent: Probably Benign BI-RADS 3 Ultrasound BI-RADS: 3 Probably benign Normal [facility] [place] Lab Report: Basic Metabolic Profile (BMP)on 04-07-2017 Anion gap 4 molar conc 8 Invalid Interpretation Code 5-15 [employer] Work Phone: [phone] Calcium mass conc 9.0 mg/dL Invalid Interpretation Code 8.5-10.1 [employer] Work Phone: [phone] Chloride molar conc 104 mmol/L Invalid Interpretation Code 98-107 [employer] Work Phone: [phone] CO2 ppres (BldV) 28.0 mmol/L Invalid Interpretation Code 21.0-32.0 [employer] Work Phone: [phone] Creatinine mass conc 0.85 mg/dL Invalid Interpretation Code 0.55-1.02 [employer] Work Phone: [phone] EST GFR - AA 93 mL/min Invalid Interpretation Code >60 [employer] Work Phone: [phone] GFR/1.73 sq M predicted among non-blacks MDRD vol rate/area (S/P/Bld) 77 mL/min/{1.73_m2} Invalid Interpretation Code >60 [employer] Work Phone: [phone] Glucose mass conc 129 mg/dL High 70-110 [facility] Work Phone: [phone] Potassium molar conc 3.4 mmol/L Low 3.5-5.[address] [facility] Work Phone: [phone] Sodium molar conc 140 mmol/L Invalid Interpretation Code 136-145 [facility] Work Phone: [phone] Urea nitrogen mass conc 11 mg/dL Invalid Interpretation Code 7-18 [facility] Work Phone: [phone] Urea nitrogen/Creatinine mass ratio 13.0 RATIO Invalid Interpretation Code 10-20 [facility] Work Phone: [phone] Office Visiton 09-03-2016 Protein mass conc Done Invalid Interpretation Code [facility] Work Phone: [phone] Clinical Lists Update: Pre oracle data warehouse developer 02-28-2016 Left ventricular Ejection fraction 65 % Invalid Interpretation Code [facility] Work Phone: [phone] Office Visiton 09-03-2015 General cardiovascular disease 10Y risk [#] Butterfield.D'Agostino 3 % Invalid Interpretation Code [facility] Work Phone: [phone] Tobacco smoking status NHIS Never smoker Invalid Interpretation Code [facility] Work Phone: [phone] Office Visiton 07-24-2015 cardiac risk group A Invalid Interpretation Code [facility] Work Phone: [phone] Clinical Lists Update: Pre oracle data warehouse developer 07-15-2015 Hematocrit Auto Volume Fraction (Bld) 42.6 % Invalid Interpretation Code [facility] Work Phone: [phone] Hemoglobin mass conc (Bld) 14.1 g/dL Invalid Interpretation Code [facility] Work Phone: [phone] Platelets Auto #/vol (Bld) 309 10*3/mm3 Invalid Interpretation Code [facility] Work Phone: [phone] RBC Auto #/vol (Bld) 4.70 10*6/uL Invalid Interpretation Code [facility] Work Phone: [phone] WBC Auto #/vol (Bld) 10.5 10*3/uL Invalid Interpretation Code [facility] Work Phone: [phone] Clinical Lists Update: Prelo oracle data warehouse developer 05-30-2015 Albumin mass conc 4.1 g/dL Invalid Interpretation Code [facility] Work Phone: [phone] Albumin/Globulin mass ratio 1.4 {ratio} Invalid Interpretation Code [facility] Work Phone: [phone] ALP enzyme act/vol (Bld) 73 U/L Invalid Interpretation Code [facility] Work Phone: [phone] ALT enzyme act/vol 23 U/L Invalid Interpretation Code [facility] Work Phone: [phone] AST enzyme act/vol 19 U/L Invalid Interpretation Code [facility] Work Phone: [phone] Bilirubin mass conc 0.5 mg/dL Invalid Interpretation Code [facility] Work Phone: [phone] Cholesterol in HDL mass conc 64 mg/dL Invalid Interpretation Code [facility] Work Phone: [phone] Cholesterol in LDL mass conc 133 mg/dL High [facility] Work Phone: [phone] Cholesterol mass conc 215 mg/dL High [facility] Work Phone: [phone] GFR/1.73 sq M predicted among non-blacks MDRD vol rate/area (S/P/Bld) 98 mL/min/{1.73_m2} Invalid Interpretation Code [facility] Work Phone: [phone] Globulin Calculated mass conc (S) 2.9 g/dL Invalid Interpretation Code [facility] Work Phone: [phone] Glomerular Filtration Rate 113 mL/min/1.73m2 Invalid Interpretation Code [facility] Work Phone: [phone] Protein mass conc 7.0 g/dL Invalid Interpretation Code [facility] Work Phone: [phone] Triglyceride mass conc 91 mg/dL Invalid Interpretation Code [facility] Work Phone: [phone] Vital Signs Date Time Vital Sign Value Performing Clinician Lucia martinez 04-24-2024 14:26-0500 Diastolic Blood Pressure Non-Invasive 82 mm[Hg] EDU FERNANDEZ MD [facility] 04-24-2024 14:26-0500 Heart rate 61 /min EDU FERNANDEZ MD [facility] 04-24-2024 14:26-0500 Systolic Blood Pressure Non-Invasive 135 mm[Hg] EDU FERNANDEZ MD [facility] 04-24-2024 13:59-0500 Diastolic Blood Pressure Non-Invasive 74 mm[Hg] EDU FERNANDEZ MD [facility] 04-24-2024 13:59-0500 Heart rate 58 /min EDU FERNANDEZ MD [facility] 04-24-2024 13:59-0500 Systolic Blood Pressure Non-Invasive 131 mm[Hg] EDU FERNANDEZ MD [facility] 04-24-2024 13:32-0500 Diastolic Blood Pressure Non-Invasive 84 mm[Hg] EDU FERNANDEZ MD [facility] 04-24-2024 13:32-0500 Heart rate 65 /min EDU FERNANDEZ MD [facility] 04-24-2024 13:32-0500 Respiratory rate 16 /min EDU FERNANDEZ MD [facility] 04-24-2024 13:32-0500 Systolic Blood Pressure Non-Invasive 144 mm[Hg] EDU FERNANDEZ MD [facility] 04-24-2024 13:10-0500 Respiratory rate 13 /min EDU FERNANDEZ MD [facility] 04-24-2024 12:58-0500 Respiratory rate 14 /min EDU FERNANDEZ MD [facility] 04-24-2024 12:30-0500 Body temperature 97.52 [degF] EDU FERNANDEZ MD [facility] 04-24-2024 12:25-0500 Respiratory Rate - Anes 16 br/min EDU FENRANDEZ MD [facility] 04-24-2024 12:20-0500 Respiratory Rate - Anes 20 br/min EDU FERNANDEZ MD [facility] 04-24-2024 12:15-0500 Respiratory Rate - Anes 13 br/min EDU FERNANDEZ MD [facility] 04-24-2024 10:47-0500 Body weight 39.14 kg/m2 EDU FERNANDEZ MD [facility] 04-24-2024 10:35-0500 Body height 152.4 cm EDU FERNANDEZ MD [facility] 04-24-2024 10:35-0500 Body weight 90.9 kg EDU FERNANDEZ MD [facility] 04-24-2024 10:35-0500 Heart rate 76 /min EDU FERNANDEZ MD [facility] 04-19-2024 13:24-0500 Blood Pressure Cuff Size EDU FERNANDEZ MD [facility] [facility] 04-19-2024 13:24-0500 Blood Pressure Location EDU FERNANDEZ MD [facility] 04-19-2024 13:24-0500 Blood Pressure Method EDU FERNANDEZ MD [facility] 04-19-2024 13:24-0500 Body height 152.4 cm EDU FERNANDEZ MD [facility] 04-19-2024 13:24-0500 Body weight 90.9 kg EDU FERNANDEZ MD [facility] 04-19-2024 13:24-0500 Body weight 39.14 kg/m2 EDU FERNANDEZ MD [facility] 04-19-2024 13:24-0500 Diastolic Blood Pressure Non-Invasive 82 mm[Hg] EDU FERNANDEZ MD [facility] 04-19-2024 13:24-0500 Heart rate 54 /min EDU FERNANDEZ MD [facility] 04-19-2024 13:24-0500 Systolic Blood Pressure Non-Invasive 128 mm[Hg] EDU FERNANDEZ MD [facility] 09-03-2016 10:36-0400 BMI (Body Mass Index) 37.49 kg/m2 MD [facility] Work Phone: 09-03-2016 10:36-0400 BP Diastolic 80 mm[Hg] Ramy Herrera MD [facility] Work Phone: 09-03-2016 10:36-0400 BP Systolic 140 mm[Hg] MD [facility] Work Phone: 09-03-2016 10:36-0400 Height 152.4 cm MD [facility] Work Phone: 09-03-2016 10:36-0400 Pulse (Heart Rate) 72 /min MD [facility] Work Phone: 09-03-2016 10:36-0400 Respiratory Rate 20 /min MD [facility] Work Phone: 09-03-2016 10:36-0400 Weight 87.09 kg MD [facility] Work Phone: 03-03-2016 13:07-0400 BSA (Body Surface Area) 1.83 m2 Ramy Herrera MD [facility] Work Phone: 09-03-2015 14:54-0400 BP Diastolic 88 mm[Hg] Ramy Herrera MD [facility] Work Phone: 09-03-2015 14:54-0400 BP Systolic 132 mm[Hg] Ramy Herrera MD [facility] Work Phone: Encounters Encounter Date Encounter Type Care Provider Facility Start: 06-27-2024 End: 06-27-2024 ambulatory Freeborn Javier Facility:[facility] Start: 06-27-2024 End: 06-27-2024 ambulatory Ramy Herrera Facility:[facility] Start: 04-24-2024 End: 04-24-2024 ambulatory EDU FERNANDEZ MD Facility:[facility] [place] Start: 04-24-2024 End: 04-24-2024 SAME DAY STAY EDU FERNANDEZ MD [facility] Start: 04-19-2024 End: 04-19-2024 Admission to establishment EDU FERNANDEZ MD [facility] Start: 04-19-2024 End: 04-19-2024 ambulatory AHSAN REDMAN DO Facility:[facility] [place] Start: 08-06-2022 End: 08-07-2022 ambulatory LESLIE LADD LPN INSTRUCTOR-SIDEWALK INSPECTOR Facility:[facility] Start: 08-06-2022 End: 08-06-2022 Patient encounter procedure LESLIE LADD LPN INSTRUCTOR-SIDEWALK INSPECTOR [facility] Start: 07-27-2022 ambulatory CHERELLE DELACRUZ MD Facil ity:[facility] Start: 07-02-2022 End: 07-03-2022 ambulatory LESLIE LADD LPN INSTRUCTOR-SIDEWALK INSPECTOR Facility:[facility] Start: 07-02-2022 End: 07-02-2022 Patient encounter procedure LESLIE LADD LPN INSTRUCTOR-SIDEWALK INSPECTOR [facility] Start: 06-29-2022 End: 06-30-2022 ambulatory CHERELLE DELACRUZ MD Facility:[facility] Start: 06-29-2022 End: 06-29-2022 Patient encounter procedure OCTAVIANO SOSA [facility] Start: 06-24-2022 End: 06-29-2022 ambulatory NONE PHYSICIAN Facility:[facility] Start: 06-24-2022 End: 06-28-2022 Outreach Lab CHERELLE DELACRUZ MD [facility] Procedures Date Procedure Procedure Detail Performing Clinician Start: 04-07-2017 End: 04-07-2017 *KISHAN Herrera MD Start: 09-03-2016 End: 10-07-2016 *KISHAN Herrera MD Start: 09-03-2016 End: 09-03-2016 NARESH Herrera MD Start: 09-03-2016 End: 09-03-2016 Follow Up Appt 1 year Ramy Herrera MD Start: 04-16-2016 End: 04-16-2016 *KISHAN Casanova PA-C Work Phone: Start: 03-03-2016 End: 03-03-2016 NARESH Casanova PA-C Work Phone: Start: 03-03-2016 End: 03-03-2016 Follow Up Appt 6 months Jolynn patel PA-C Work Phone: Start: 03-03-2016 End: 03-03-2016 Dietary management education, guidance, and counseling Ramy Herrera MD Start: 02-28-2016 End: 03-02-2016 *KISHAN Herrera MD Start: 09-03-2015 End: 10-06-2015 *KISHAN Herrera MD Start: 09-03-2015 End: 02-26-2016 Follow Up Appt 6 months Everette Melendrez Start: 09-03-2015 End: 02-26-2016 MMM Ramy Herrera MD Start: 09-02-2015 End: 09-02-2015 *KISHAN Herrera MD Start: 07-24-2015 End: 08-23-2015 *KISHAN Herrera MD Start: 07-24-2015 End: 07-24-2015 NARESH Herrera MD Start: 07-24-2015 End: 07-24-2015 Follow Up Appt 6 weeks Ramy Herrera MD Closed reduction of dislocation of upper limb EDU FERNANDEZ MD Structure of wisdom tooth (body structure) EDU FERNANDEZ MD Plan of Treatment Date Care Activity Detail Author Start: 09-07-2017 End: 09-07-2017 Appointment Appointment [facility] Work Phone: Start: 04-07-2017 End: 04-07-2017 *BMP *BMP [facility] Work Phone: Start: 09-03-2016 End: 10-07-2016 *BMP *BMP [facility] Work Phone: Start: 09-03-2016 End: 09-03-2016 GUIDANCE ADVISER GUIDANCE ADVISER [facility] Work Phone: Start: 09-03-2016 End: 09-03-2016 Follow Up Appt 1 year Follow Up Appt 1 year [facility] Work Phone: Start: 06-12-2016 End: 04-16-2016 *BMP *BMP [facility] Work Phone: Start: 03-03-2016 End: 03-03-2016 GUIDANCE ADVISER GUIDANCE ADVISER [facility] Work Phone: Start: 03-03-2016 End: 03-03-2016 Follow Up Appt 6 months Follow Up Appt 6 months [facility] Work Phone: Start: 02-28-2016 End: 03-02-2016 *BMP *BMP [facility] Work Phone: Start: 09-06-2015 End: 09-02-2015 *BMP *BMP [facility] Work Phone: Start: 09-03-2015 End: 10-06-2015 *BMP *BMP [facility] Work Phone: Start: 09-03-2015 End: 02-26-2016 Follow Up Appt 6 months Follow Up Appt 6 months [facility] Work Phone: Start: 09-03-2015 End: 02-26-2016 MMM MMM [facility] Work Phone: Start: 07-24-2015 End: 08-23-2015 *BMP *BMP [facility] Work Phone: Start: 07-24-2015 End: 07-24-2015 GUIDANCE ADVISER GUIDANCE ADVISER [facility] Work Phone: Start: 07-24-2015 End: 07-24-2015 Follow Up Appt 6 weeks Follow Up Appt 6 weeks [facility] Work Phone: Payers Date Payer Category Payer Self-pay 1970 Unknown [id number] [id number] 1970 Unknown [id number] [id number] [id number] 1970 Unknown [id number] 2.16.8 [id number] 1970 Unknown [id number] 2.16.8 [id number] 1970 Unknown [id number] 2.16.8 [id number] 1970 Unknown [id number] 2.16.8 [id number] 1969 Unknown [id number] 2.16.8 [id number] 1969 Unknown [id number] 2.16.8 [id number] Unknown [id number] 2.16.8 [id number] Unknown [id number] 2.16.8 [id number] Social History Date Type Detail Facility Start: 06-24-2022 Tobacco smoking status Never s moked tobacco (finding) [facility] Sex Assigned At Sex [facility] Functional Status Date Assessment Result Facility 04-24-2024 Functional Status Up to chair [facility] 04-24-2024 Functional Status bilateral knee high applied/on [facility] 04-24-2024 Functional Status Maintained [facility] 04-19-2024 Functional Status Sensory Deficits None A [facility] Mental Status Date Assessment Result Facility 04-24-2024 Mental Status Oriented x [address] [facility] 04-24-20[address] Mental [address] [facility] Clinical Notes 06-29-2022 to 04-24-2024 Note Date & Type Note Facility 04-24-2024 Hospital Discharg e instructions Patient Education 04/24/2024 12:56:49 Mole Excision Mole Excision Mole excision is a procedure to remove (excise) a mole from your skin. Most moles are noncancerous (are benign) and do not require treatment. Some moles are larger than usual or look like cancerous moles (atypical moles). You may have a mole excision if: You have an atypical mole that your health care provider thinks should be looked at under a microscope to see if it is cancerous (biopsy). You have a mole that is causing pain. You have a mole that you want removed because you do not like the way it looks. Tell a health care provider about: Any allergies you have. All medicines you are taking, including vitamins, herbs, eye drops, creams, and qulh-hla-snblywc medicines. Any problems you or family members have had with anesthetic medicines. Any blood disorders you have. Any surgeries you have had. Any medical conditions you have. Whether you are or may be . What are the risks? Generally, this is a safe procedure. However, problems may occur, including: Excessive bleeding. Infection. Scarring. Allergic reactions to medicines. Damage to the skin or other tissues around the mole. What happens before the procedure? Ask your health care provider what steps will be taken to help prevent infection. These may include: ?Removing hair around the mole. ?Washing skin with germ-killing soap. What happens during the procedure? You will be given a medicine to numb the area (local anesthetic). Your health care provider will outline the mole with ink and ruben the center with a dot. This will serve as a guide during the procedure. Depending on the size of your mole, your health care provider will remove it using: ?A surgical blade. The mole will be cut out or shaved off (shave excision). ?A hollow tube with a sharp end (punch device). This may be used for larger moles. Your health care provider may use stitches (sutures) to close the wound in the skin where the mole was removed (excision site). A bandage (dressing) may be applied over the area. The procedure may vary among health care providers and hospitals. What can I expect after procedure? Your blood pressure, heart rate, breathing rate, and blood oxygen level will be monitored until you leave the hospital or clinic. You may return to your normal activities as told by your health care provider. It is up to you to get any test results. If a sample will be tested in a lab, ask your health care provider or the department that is doing the procedure when your results will be ready. Talk with your health care provider about what your results mean. After the procedure, it is common to have: ?Mild pain. Your pain may increase as the anesthetic medicine wears off. ?Mild redness and swelling. Follow these instructions at home: Incision care Follow instructions from your health care provider about how to take care of your incision. Make sure you: ?Wash your hands with soap and water before you change your bandage (dressing). If soap and water are not available, use hand french lecturer. ?Change your dressing as told by your health care provider. ?Leave stitches (sutures), skin glue, or adhesive strips in place. These skin closures may need to stay in place for 2 weeks or longer. If adhesive strip edges start to loosen and curl up, you may trim the loose edges. Do not remove adhesive strips completely unless your health care provider tells you to do that. Check your incision area every day for signs of infection. Check for: ?More redness, swelling, or pain. ?Fluid or blood. ?Warmth ?Pus or a bad smell. General instructions Take jgxy-hlj-fytopwx and prescription medicines only as told by your health care provider. Follow instructions from your health care provider about how to minimize scarring. Avoid sun exposure until the area has healed. Scarring should lessen over time. ?To help prevent scarring, make sure to cover your wound with sunscreen of at least SPF 30 after the wound has healed and all skin closures have been removed or fallen off. Keep all follow-up visits as told by your health care provider. This is important. Contact a health care provider if: A mole grows back in the same place where a mole had been removed. You have a fever. You have more redness, swelling, or pain at the incision site. You have fluid or blood coming from your incision site. Your incision site feels warm to the touch. You have pus or a bad smell coming from your incision site. Your incision site feels numb for several days after the procedure. Summary Mole excision is a procedure to remove (excise) a mole from your skin. You will be given a medicine to numb the area (local anesthetic) during the procedure to remove the mole. After the procedure, it is common to have mild pain and redness. Wash your hands with soap and water before you change your bandage (dressing). If soap and water are not available, use hand french lecturer. Contact your health care provider if you have problems or questions. This information is not intended to replace advice given to you by your health care provider. Make sure you discuss any questions you have with your health care provider. Document Released: 05/28/2001 Document Revised: 06/16/2018 Document Reviewed: 06/13/2018 [employer] Patient Education 2020 [employer]. 04/24/2024 12:56:32 General Anesthesia, Adult, Care After General Anesthesia, Adult, Care After This sheet gives you information about how to care for yourself after your procedure. Your health care provider may also give you more specific instructions. If you have problems or questions, contact your health care provider. What can I expect after the procedure? After the procedure, the following side effects are common: Pain or discomfort at the IV site. Nausea. Vomiting. Sore throat. Trouble concentrating. Feeling cold or chills. Weak or tired. Sleepiness and fatigue. Soreness and body aches. These side effects can affect parts of the body that were not involved in surgery. Follow these instructions at home: For at least 24 hours after the procedure: Have a responsible adult stay with you. It is important to have someone help care for you until you are awake and alert. Rest as needed. Do not: ?Participate in activities in which you could fall or become injured. ?Drive. ?Use heavy machinery. ?Drink alcohol. ?Take sleeping pills or medicines that cause drowsiness. ?Make important decisions or sign legal documents. ?Take care of children on your own. Eating and drinking Follow any instructions from your health care provider about eating or drinking restrictions. When you feel hungry, start by eating small amounts of foods that are soft and easy to digest (bland), such as toast. Gradually return to your regular diet. Drink enough fluid to keep your urine pale yellow. If you vomit, rehydrate by drinking water, juice, or clear broth. General instructions If you have sleep apnea, surgery and certain medicines can increase your risk for breathing problems. Follow instructions from your health care provider about wearing your sleep device: ?Anytime you are sleeping, including during daytime naps. ?While taking prescription pain medicines, sleeping medicines, or medicines that make you drowsy. Return to your normal activities as told by your health care provider. Ask your health care provider what activities are safe for you. Take diac-kub-bgaqhwc and prescription medicines only as told by your health care provider. If you smoke, do not smoke without supervision. Keep all follow-up visits as told by your health care provider. This is important. Contact a health care provider if: You have nausea or vomiting that does not get better with medicine. You cannot eat or drink without vomiting. You have pain that does not get better with medicine. You are unable to pass urine. You develop a skin rash. You have a fever. You have redness around your IV site that gets worse. Get help right away if: You have difficulty breathing. You have chest pain. You have blood in your urine or stool, or you vomit blood. Summary After the procedure, it is common to have a sore throat or nausea. It is also common to feel tired. Have a responsible adult stay with you for the first 24 hours after general anesthesia. It is important to have someone help care for you until you are awake and alert. When you feel hungry, start by eating small amounts of foods that are soft and easy to digest (bland), such as toast. Gradually return to your regular diet. Drink enough fluid to keep your urine pale yellow. Return to your normal activities as told by your health care provider. Ask your health care provider what activities are safe for you. This information is not intended to replace advice given to you by your health care provider. Make sure you discuss any questions you have with your health care provider. Document Released: 09/06/2001 Document Revised: 06/03/2018 Document Reviewed: 01/14/2018 [employer] Patient Education 2020 [employer]. 04/24/2024 12:56:27 Deep Vein Thrombosis Deep Vein Thrombosis Deep vein thrombosis (DVT) is a condition in which a blood clot forms in a deep vein, such as a lower leg, thigh, or arm vein. A clot is blood that has thickened into a gel or solid. This condition is dangerous. It can lead to serious and even life-threatening complications if the clot travels to the lungs and causes a blockage (pulmonary embolism). It can also damage veins in the leg. This can result in leg pain, swelling, discoloration, and sores (post-thrombotic syndrome). What are the causes? This condition may be caused by: A slowdown of blood flow. Damage to a vein. A condition that causes blood to clot more easily, such as an inherited clotting disorder. What increases the risk? The following factors may make you more likely to develop this condition: Being overweight. Being older, especially over age 60. Sitting or lying down for more than four hours. Being in the hospital. Lack of physical activity (sedentary lifestyle). , being in childbirth, or having recently given . Taking medicines that contain estrogen, such as medicines to prevent . Smoking. A history of any of the following: ?Blood clots or a blood clotting disease. ?Peripheral vascular disease. ?Inflammatory bowel disease. ?Cancer. ?Heart disease. ?Genetic conditions that affect how your blood clots, such as Factor V Leiden mutation. ?Neurological diseases that affect your legs (leg paresis). ?A recent injury, such as a car accident. ?Major or lengthy surgery. ?A central line placed inside a large vein. What are the signs or symptoms? Symptoms of this condition include: Swelling, pain, or tenderness in an arm or leg. Warmth, redness, or discoloration in an arm or leg. If the clot is in your leg, symptoms may be more noticeable or worse when you stand or walk. Some people may not develop any symptoms. How is this diagnosed? This condition is diagnosed with: A medical history and physical exam. Tests, such as: ?Blood tests. These are done to check how well your blood clots. ?Ultrasound. This is done to check for clots. ?Venogram. For this test, contrast dye is injected into a vein and X-rays are taken to check for any clots. How is this treated? Treatment for this condition depends on: The cause of your DVT. Your risk for bleeding or developing more clots. Any other medical conditions that you have. Treatment may include: Taking a blood thinner (anticoagulant). This type of medicine prevents clots from forming. It may be taken by mouth, injected under the skin, or injected through an IV (catheter). Injecting clot-dissolving medicines into the affected vein (catheter-directed thrombolysis). Having surgery. Surgery may be done to: ?Remove the clot. ?Place a filter in a large vein to catch blood clots before they reach the lungs. Some treatments may be continued for up to six months. Follow these instructions at home: If you are taking blood thinners: Take the medicine exactly as told by your health care provider. Some blood thinners need to be taken at the same time every day. Do not skip a dose. Talk with your health care provider before you take any medicines that contain aspirin or NSAIDs. These medicines increase your risk for dangerous bleeding. Ask your health care provider about foods and drugs that could change the way the medicine works (may interact). Avoid those things if your health care provider tells you to do so. Blood thinners can cause easy bruising and may make it difficult to stop bleeding. Because of this: ?Be very careful when using knives, scissors, or other sharp objects. ?Use an electric razor instead of a blade. ?Avoid activities that could cause injury or bruising, and follow instructions about how to prevent falls. Wear a medical alert bracelet or carry a card that lists what medicines you take. General instructions Take cdgq-jlz-nyvlfpj and prescription medicines only as told by your health care provider. Return to your normal activities as told by your health care provider. Ask your health care provider what activities are safe for you. Wear compression stockings if recommended by your health care provider. Keep all follow-up visits as told by your health care provider. This is important. How is this prevented? To lower your risk of developing this condition again: For 30 or more minutes every day, do an activity that: ?Involves moving your arms and legs. ?Increases your heart rate. When traveling for longer than four hours: ?Exercise your arms and legs every hour. ?Drink plenty of water. ?Avoid drinking alcohol. Avoid sitting or lying for a long time without moving your legs. If you have surgery or you are hospitalized, ask about ways to prevent blood clots. These may include taking frequent walks or using anticoagulants. Stay at a healthy weight. If you are a woman who is older than age 35, avoid unnecessary use of medicines that contain estrogen, such as some control pills. Do not use any products that contain nicotine or tobacco, such as cigarettes and e-cigarettes. This is especially important if you take estrogen medicines. If you need help quitting, ask your health care provider. Contact a health care provider if: You miss a dose of your blood thinner. Your menstrual period is heavier than usual. You have unusual bruising. Get help right away if: You have: ?New or increased pain, swelling, or redness in an arm or leg. ?Numbness or tingling in an arm or leg. ?Shortness of breath. ?Chest pain. ?A rapid or irregular heartbeat. ?A severe headache or confusion. ?A cut that will not stop bleeding. There is blood in your vomit, stool, or urine. You have a serious fall or accident, or you hit your head. You feel light-headed or dizzy. You cough up blood. These symptoms may represent a serious problem that is an emergency. Do not wait to see if the symptoms will go away. Get medical help right away. Call your local emergency services (911 in the [place] Do not drive yourself to the hospital. Summary Deep vein thrombosis (DVT) is a condition in which a blood clot forms in a deep vein, such as a lower leg, thigh, or arm vein. Symptoms can include swelling, warmth, pain, and redness in your leg or arm. This condition may be treated with a blood thinner (anticoagulant medicine), medicine that is injected to dissolve blood clots,compression stockings, or surgery. If you are prescribed blood thinners, take them exactly as told. This information is not intended to replace advice given to you by your health care provider. Make sure you discuss any questions you have with your health care provider. Document Released: 05/31/2006 Document Revised: 05/13/2018 Document Reviewed: 10/29/2017 [employer] Patient Education 2020 [employer]. 04/24/2024 12:56:22 Nausea and Vomiting, Adult, [id number] Nausea and Vomiting, Adult Nausea is feeling sick to your stomach or feeling that you are about to throw up (vomit). Vomiting is when food in your stomach is thrown up and out of the mouth. Throwing up can make you feel weak. It can also make you lose too much water in your body (get dehydrated). If you lose too much water in your body, you may: Feel tired. Feel thirsty. Have a dry mouth. Have cracked lips. Go pee (urinate) less often. Older adults and people with other diseases or a weak body defense system (immune system) are at higher risk for losing too much water in the body. If you feel sick to your stomach and you throw up, it is important to follow instructions from your doctor about how to take care of yourself. Follow these instructions at home: Watch your symptoms for any changes. Tell your doctor about them. Follow these instructions to care for yourself at home. Eating and drinking Take an ORS (oral rehydration solution). This is a drink that is sold at pharmacies and stores. Drink clear fluids in small amounts as you are able, such as: ?Water. ?Ice chips. ?Fruit juice that has water added (diluted fruit juice). ?Low-calorie sports drinks. Eat bland, egpt-hw-ikcotk foods in small amounts as you are able, such as: ?Bananas. ?Applesauce. ?Rice. ?Low-fat (lean) meats. ?[place]. ?Crackers. Avoid drinking fluids that have a lot of sugar or caffeine in them. This includes energy drinks, sports drinks, and soda. Avoid alcohol. Avoid spicy or fatty foods. General instructions Take jsrc-fhy-ybobzgc and prescription medicines only as told by your doctor. Drink enough fluid to keep your pee (urine) pale yellow. Wash your hands often with soap and water. If you cannot use soap and water, use hand french lecturer. Make sure that all people in your home wash their hands well and often. Rest at home while you get better. Watch your condition for any changes. Take slow and deep breaths when you feel sick to your stomach. Keep all follow-up visits as told by your doctor. This is important. Contact a doctor if: Your symptoms get worse. You have new symptoms. You have a fever. You cannot drink fluids without throwing up. You feel sick to your stomach for more than 2 days. You feel light-headed or dizzy. You have a headache. You have muscle cramps. You have a rash. You have pain while peeing. Get help right away if: You have pain in your chest, neck, arm, or jaw. You feel very weak or you pass out (faint). You throw up again and again. You have throw up that is bright red or looks like black coffee grounds. You have bloody or black poop (stools) or poop that looks like tar. You have a very bad headache, a stiff neck, or both. You have very bad pain, cramping, or bloating in your belly (abdomen). You have trouble breathing. You are breathing very quickly. Your heart is beating very quickly. Your skin feels cold and clammy. You feel confused. You have signs of losing too much water in your body, such as: ?Dark pee, very little pee, or no pee. ?Cracked lips. ?Dry mouth. ?Sunken eyes. ?Sleepiness. ?Weakness. These symptoms may be an emergency. Do not wait to see if the symptoms will go away. Get medical help right away. Call your local emergency services (911 in the [place] Do not drive yourself to the hospital. Summary Nausea is feeling sick to your stomach or feeling that you are about to throw up (vomit). Vomiting is when food in your stomach is thrown up and out of the mouth. Follow instructions from your doctor about eating and drinking to keep from losing too much water in your body. Take iyuv-vuo-tcreutv and prescription medicines only as told by your doctor. Contact your doctor if your symptoms get worse or you have new symptoms. Keep all follow-up visits as told by your doctor. This is important. This information is not intended to replace advice given to you by your health care provider. Make sure you discuss any questions you have with your health care provider. Document Released: 11/16/2008 Document Revised: 09/22/2019 Document Reviewed: 11/08/2018 [employer] Patient Education 2020 [employer]. 04/24/2024 12:56:15 Endometrial Ablation Endometrial Ablation Endometrial ablation is a procedure that destroys the thin inner layer of the lining of the uterus (endometrium). This procedure may be done: To stop heavy periods. To stop bleeding that is causing anemia. To control irregular bleeding. To treat bleeding caused by small tumors (fibroids) in the endometrium. This procedure is often an alternative to major surgery, such as removal of the uterus and cervix (hysterectomy). As a result of this procedure: You may not be able to have children. However, if you are premenopausal (you have not gone through menopause): ?You may still have a small chance of getting . ?You will need to use a reliable method of control after the procedure to prevent . You may stop having a menstrual period, or you may have only a small amount of bleeding during your period. Menstruation may return several years after the procedure. Tell a health care provider about: Any allergies you have. All medicines you are taking, including vitamins, herbs, eye drops, creams, and dccy-bsv-ljxhdmh medicines. Any problems you or family members have had with the use of anesthetic medicines. Any blood disorders you have. Any surgeries you have had. Any medical conditions you have. What are the risks? Generally, this is a safe procedure. However, problems may occur, including: A hole (perforation) in the uterus or bowel. Infection of the uterus, bladder, or vagina. Bleeding. Damage to other structures or organs. An air bubble in the lung (air embolus). Problems with after the procedure. Failure of the procedure. Decreased ability to diagnose cancer in the endometrium. What happens before the procedure? You will have tests of your endometrium to make sure there are no pre-cancerous cells or cancer cells present. You may have an ultrasound of the uterus. You may be given medicines to thin the endometrium. Ask your health care provider about: ?Changing or stopping your regular medicines. This is especially important if you take diabetes medicines or blood thinners. ?Taking medicines such as aspirin and ibuprofen. These medicines can thin your blood. Do not take these medicines before your procedure if your doctor tells you not to. Plan to have someone take you home from the hospital or clinic. What happens during the procedure? You will lie on an exam table with your feet and legs supported as in a pelvic exam. To lower your risk of infection: ?Your health care team will wash or sanitize their hands and put on germ-free (sterile) gloves. ?Your genital area will be washed with soap. An IV tube will be inserted into one of your veins. You will be given a medicine to help you relax (sedative). A surgical instrument with a light and camera (resectoscope) will be inserted into your vagina and moved into your uterus. This allows your surgeon to see inside your uterus. Endometrial tissue will be removed using one of the following methods: ?Radiofrequency. This method uses a radiofrequency-alternating electric current to remove the endometrium. ?Cryotherapy. This method uses extreme cold to freeze the endometrium. ?Heated-free liquid. This method uses a heated saltwater (saline) solution to remove the endometrium. ?Microwave. This method uses high-energy microwaves to heat up the endometrium and remove it. ?Thermal balloon. This method involves inserting a catheter with a balloon tip into the uterus. The balloon tip is filled with heated fluid to remove the endometrium. The procedure may vary among health care providers and hospitals. What happens after the procedure? Your blood pressure, heart rate, breathing rate, and blood oxygen level will be monitored until the medicines you were given have worn off. As tissue healing occurs, you may notice vaginal bleeding for 4 6 weeks after the procedure. You may also experience: ?Cramps. ?Thin, watery vaginal discharge that is light pink or brown in color. ?A need to urinate more frequently than usual. ?Nausea. Do not drive for 24 hours if you were given a sedative. Do not have sex or insert anything into your vagina until your health care provider approves. Summary Endometrial ablation is done to treat the many causes of heavy menstrual bleeding. The procedure may be done only after medications have been tried to control the bleeding. Plan to have someone take you home from the hospital or clinic. This information is not intended to replace advice given to you by your health care provider. Make sure you discuss any questions you have with your health care provider. Document Released: 04/09/2005 Document Revised: 11/15/2018 Document Reviewed: 06/17/2017 [employer] Patient Education 2020 [employer]. 04/24/2024 12:55:54 Hysteroscopy, Care After Hysteroscopy, Care After This sheet gives you information about how to care for yourself after your procedure. Your health care provider may also give you more specific instructions. If you have problems or questions, contact your health care provider. What can I expect after the procedure? After the procedure, it is common to have: Cramping. Bleeding. This can vary from light spotting to menstrual-like bleeding. Follow these instructions at home: Activity Rest for 1 2 days after the procedure. Do not douche, use tampons, or have sex for 2 weeks after the procedure, or until your health care provider approves. Do not drive for 24 hours after the procedure, or for as long as told by your health care provider. Do not drive, use heavy machinery, or drink alcohol while taking prescription pain medicines. Medicines Take llra-zjd-smfhxqf and prescription medicines only as told by your health care provider. Do not take aspirin during recovery. It can increase the risk of bleeding. General instructions Do not take baths, swim, or use a hot tub until your health care provider approves. Take showers instead of baths for 2 weeks, or for as long as told by your health care provider. To prevent or treat constipation while you are taking prescription pain medicine, your health care provider may recommend that you: ?Drink enough fluid to keep your urine clear or pale yellow. ?Take aigk-jwm-qcccpqm or prescription medicines. ?Eat foods that are high in fiber, such as fresh fruits and vegetables, whole grains, and beans. ?Limit foods that are high in fat and processed sugars, such as fried and sweet foods. Keep all follow-up visits as told by your health care provider. This is important. Contact a health care provider if: You feel dizzy or lightheaded. You feel nauseous. You have abnormal vaginal discharge. You have a rash. You have pain that does not get better with medicine. You have chills. Get help right away if: You have bleeding that is heavier than a normal menstrual period. You have a fever. You have pain or cramps that get worse. You develop new abdominal pain. You faint. You have pain in your shoulders. You have shortness of breath. Summary After the procedure, you may have cramping and some vaginal bleeding. Do not douche, use tampons, or have sex for 2 weeks after the procedure, or until your health care provider approves. Do not take baths, swim, or use a hot tub until your health care provider approves. Take showers instead of baths for 2 weeks, or for as long as told by your health care provider. Report any unusual symptoms to your health care provider. Keep all follow-up visits as told by your health care provider. This is important. This information is not intended to replace advice given to you by your health care provider. Make sure you discuss any questions you have with your health care provider. Document Released: 03/21/2014 Document Revised: 05/13/2018 Document Reviewed: 06/29/2017 [employer] Patient Education 2020 [employer]. 04/24/2024 12:55:44 Dilation and Curettage or Vacuum Curettage, Care After, Gvls-xd-Kxla Dilation and Curettage or Vacuum Curettage, Care After These instructions give you information about caring for yourself after your procedure. Your doctor may also give you more specific instructions. Call your doctor if you have any problems or questions after your procedure. Follow these instructions at home: Activity Do not drive or use heavy machinery while taking prescription pain medicine. For 24 hours after your procedure, avoid driving. Take short walks often, followed by rest periods. Ask your doctor what activities are safe for you. After one or two days, you may be able to return to your normal activities. Do not lift anything that is heavier than 10 lb (4.5 kg) until your doctor approves. For at least 2 weeks, or as long as told by your doctor: ?Do not douche. ?Do not use tampons. ?Do not have sex. General instructions Take lanj-eao-prrgmos and prescription medicines only as told by your doctor. This is very important if you take blood thinning medicine. Do not take baths, swim, or use a hot tub until your doctor approves. Take showers instead of baths. Wear compression stockings as told by your doctor. It is up to you to get the results of your procedure. Ask your doctor when your results will be ready. Keep all follow-up visits as told by your doctor. This is important. Contact a doctor if: You have very bad cramps that get worse or do not get better with medicine. You have very bad pain in your belly (abdomen). You cannot drink fluids without throwing up (vomiting). You get pain in a different part of the area between your belly and thighs (pelvis). You have bad-smelling discharge from your vagina. You have a rash. Get help right away if: You are bleeding a lot from your vagina. A lot of bleeding means soaking more than one sanitary pad in an hour, for 2 hours in a row. You have clumps of blood (blood clots) coming from your vagina. You have a fever or chills. Your belly feels very tender or hard. You have chest pain. You have trouble breathing. You cough up blood. You feel dizzy. You feel light-headed. You pass out (faint). You have pain in your neck or shoulder area. Summary Take short walks often, followed by rest periods. Ask your doctor what activities are safe for you. After one or two days, you may be able to return to your normal activities. Do not lift anything that is heavier than 10 lb (4.5 kg) until your doctor approves. Do not take baths, swim, or use a hot tub until your doctor approves. Take showers instead of baths. Contact your doctor if you have any symptoms of infection, like bad-smelling discharge from your vagina. This information is not intended to replace advice given to you by your health care provider. Make sure you discuss any questions you have with your health care provider. Document Released: 03/09/2009 Document Revised: 05/13/2018 Document Reviewed: 02/15/2017 [employer] Patient Education [employer]. Follow Up Care 04/19/2024 12:35:51 With:EDU FERNANDEZ MD Address: [address] [place] [phone] When: Unknown Comments:CALL DR FERNANDEZ FOR A FOLLOW UP APPOINTMENT AND WITH ANY QUESTIONS OR CONCERNS YOU MAY HAVE. GO TO THE EMERGENCY ROOM WITH ANY URGENT CONCERNS. [facility] 04-24-2024 Evaluation + Plan note Extrac ade from: Title:Clinical Document Author:EDU FERNANDEZ MD Date:04/24/24 History and Physical Update I have examined the patient; reviewed the H&P and there are no changes to the H&P unless noted below. [facility] 11-11-2024 Note Discharge Instructions Thank you for allowing [facility] to assist you with your healthcare needs. The following is importantdischarge information regarding your hospital visit. Your Care Team AHSAN REDMAN DO DR. Yoli FERNANDEZ What to do next Follow Up Appointments Follow Up with EDU FERNANDEZ MD Where:[address] [place] [phone] Additional Information: CALL DR FERNANDEZ FOR A FOLLOW UP APPOINTMENT AND WITH ANY QUESTIONS OR CONCERNS YOU MAY HAVE. GO TO THE EMERGENCY ROOM WITH ANY URGENT CONCERNS. Allergies aspirin(Severe) SOB - Shortness of breath amLODIPine (Mild) Malaise Medications Please ask your primary doctor or pharmacist before taking any other medication not listed, including over the counter drugs, herbal medications, vitamins and or supplements as they may interact withyour home medications. What How Much When Instructions Last Dose Unchanged ascorbic acid (Vitamin C) Once a day Unchanged cholecalciferol (Vitamin D (3) 45 units oral capsule) Unchanged ferrous sulfate (IRON (ferrous sulfate 325 mg) 65 mg oral tablet) 1 tab(s) by mouth Twice daily with meals Take with food. Unchanged herbal/ nutritional product (Red Yeast Rice 600 mg oral capsule) 2 cap by mouth Three (3) times a day with meals Unchanged lisinopril (lisinopril 40 mg oral tablet) TAKE 1 TABLET BY MOUTH ONCE DAILY Unchanged metoprolol (Metoprolol Succinate ER 100 mg oral TABLET extended release) TAKE 1 TABLET BY MOUTH ONCE DAILY Unchanged multivitamin (Multivitamin) 1 tab(s) by mouth Every day Unchanged NIFEdipine (NIFEdipine (Eqv-Adalat CC) 90 mg oral tablet, extended release) TAKE 1 TABLET BY MOUTH ONCE DAILY Unchanged potassium chloride (Potassium Chloride (Eqv-K-Tab) 10 mEq oral tablet, extended release) TAKE 1 TABLET BY MOUTH TWICE DAILY Unchanged spironolactone (spironolactone 25 mg oral tablet) 1 tab(s) by mouth Once a day with a meal Please take this list to your next doctor s visit. Bring all medications you take, including over the counter medications, herbals and other supplements with you to your doctor s visit. Patients and families are reminded to discard old lists and to update any records with all medication providers or retail pharmacies. Education Materials Mole Excision Mole excision is a procedure to remove (excise) a mole from your skin. Most moles are noncancerous (are benign) and do not require treatment. Some moles are larger than usual or look like cancerous moles (atypical moles). You may have a mole excision if: You have an atypical mole that your health care provider thinks should be looked at under a microscope to see if it is cancerous (biopsy). You have a mole that is causing pain. You have a mole that you want removed because you do not like the way it looks. Tell a health care provider about: Any allergies you have. All medicines you are taking, including vitamins, herbs, eye drops, creams, and suzm-wbm-knuqxbo medicines. Any problems you or family members have had with anesthetic medicines. Any blood disorders you have. Any surgeries you have had. Any medical conditions you have. Whether you are or may be . What are the risks? Generally, this is a safe procedure. However, problems may occur, including: Excessive bleeding. Infection. Scarring. Allergic reactions to medicines. Damage to the skin or other tissues around the mole. What happens before the procedure? Ask your health care provider what steps will be taken to help prevent infection. These may include: ? Removing hair around the mole. ? Washing skin with germ-killing soap. What happens during the procedure? You will be given a medicine to numb the area (local anesthetic). Your health care provider will outline the mole with ink and ruben the center with a dot. This will serve as a guide during the procedure. Depending on the size of your mole, your health care provider will remove it using: ? A surgical blade. The mole will be cut out or shaved off (shave excision). ? A hollow tube with a sharp end (punch device). This may be used for larger moles. Your health care provider may use stitches (sutures) to close the wound in the skin where the mole was removed (excision site). A bandage (dressing) may be applied over the area. The procedure may vary among health care providers and hospitals. What can I expect after procedure? Your blood pressure, heart rate, breathing rate, and blood oxygen level will be monitored until youleave the hospital or clinic. You may return to your normal activities as told by your health care provider. It is up to you to get any test results. If a sample will be tested in a lab, ask your health care provider or the department that is doing the procedure when your results will be ready. Talk with your health care provider about what your results mean. After the procedure, it is common to have: ? Mild pain. Your pain may increase as the anesthetic medicine wears off. ? Mild redness and swelling. Follow these instructions at home: Incision care Follow instructions from your health care provider about how to take care of your incision. Make sure you: ? Wash your hands with soap and water before you change your bandage (dressing). If soap and water are not available, use hand french lecturer. ? Change your dressing as told by your health care provider. ? Leave stitches (sutures), skin glue, or adhesive strips in place. These skin closures may need to stay in place for 2 weeks or longer. If adhesive strip edges start to loosen and curl up, you may trim the loose edges. Do not remove adhesive strips completely unless your health care provider tells you to do that. Check your incision area every day for signs of infection. Check for: ? More redness, swelling, or pain. ? Fluid or blood. ? Warmth ? Pus or a bad smell. General instructions Take jlmo-uxl-vwoswqt and prescription medicines only as told by your health care provider. Follow instructions from your health care provider about how to minimize scarring. Avoid sun exposure until the area has healed. Scarring should lessen over time. ? To help prevent scarring, make sure to cover your wound with sunscreen of at least SPF 30 after thewound has healed and all skin closures have been removed or fallen off. Keep all follow-up visits as told by your health care provider. This is important. Contact a health care provider if: A mole grows back in the same place where a mole had been removed. You have a fever. You have more redness, swelling, or pain at the incision site. You have fluid or blood coming from your incision site. Your incision site feels warm to the touch. You have pus or a bad smell coming from your incision site. Your incision site feels numb for several days after the procedure. Summary Mole excision is a procedure to remove (excise) a mole from your skin. You will be given a medicine to numb the area (local anesthetic) during the procedure to remove themole. After the procedure, it is common to have mild pain and redness. Wash your hands with soap and water before you change your bandage (dressing). If soap and water are not available, use hand french lecturer. Contact your health care provider if you have problems or questions. This information is not intended to replace advice given to you by your health care provider. Make sure you discuss any questions you have with your health care provider. Document Released: 05/28/2001 Document Revised: 06/16/2018 Document Reviewed: 06/13/2018 [employer] Patient Education 2020 [employer] General Anesthesia, Adult, Care After This sheet gives you information about how to care for yourself after your procedure. Your health care provider may also give you more specific instructions. If you have problems or questions, contact your health care provider. What can I expect after the procedure? After the procedure, the following side effects are common: Pain or discomfort at the IV site. Nausea. Vomiting. Sore throat. Trouble concentrating. Feeling cold or chills. Weak or tired. Sleepiness and fatigue. Soreness and body aches. These side effects can affect parts of the body that were not involved in surgery. Follow these instructions at home: For at least 24 hours after the procedure: Have a responsible adult stay with you. It is important to have someone help care for you until youare awake and alert. Rest as needed. Do not: ? Participate in activities in which you could fall or become injured. ? Drive. ? Use heavy machinery. ? Drink alcohol. ? Take sleeping pills or medicines that cause drowsiness. ? Make important decisions or sign legal documents. ? Take care of children on your own. Eating and drinking Follow any instructions from your health care provider about eating or drinking restrictions. When you feel hungry, start by eating small amounts of foods that are soft and easy to digest (bland), such as toast. Gradually return to your regular diet. Drink enough fluid to keep your urine pale yellow. If you vomit, rehydrate by drinking water, juice, or clear broth. General instructions If you have sleep apnea, surgery and certain medicines can increase your risk for breathing problems. Follow instructions from your health care provider about wearing your sleep device: ? Anytime you are sleeping, including during daytime naps. ? While taking prescription pain medicines, sleeping medicines, or medicines that make you drowsy. Return to your normal activities as told by your health care provider. Ask your health care provider what activities are safe for you. Take ripk-rsv-fjtmeih and prescription medicines only as told by your health care provider. If you smoke, do not smoke without supervision. Keep all follow-up visits as told by your health care provider. This is important. Contact a health care provider if: You have nausea or vomiting that does not get better with medicine. You cannot eat or drink without vomiting. You have pain that does not get better with medicine. You are unable to pass urine. You develop a skin rash. You have a fever. You have redness around your IV site that gets worse. Get help right away if: You have difficulty breathing. You have chest pain. You have blood in your urine or stool, or you vomit blood. Summary After the procedure, it is common to have a sore throat or nausea. It is also common to feel tired. Have a responsible adult stay with you for the first 24 hours after general anesthesia. It is important to have someone help care for you until you are awake and alert. When you feel hungry, start by eating small amounts of foods that are soft and easy to digest (bland), such as toast. Gradually return to your regular diet. Drink enough fluid to keep your urine pale yellow. Return to your normal activities as told by your health care provider. Ask your health care provider what activities are safe for you. This information is not intended to replace advice given to you by your health care provider. Make sure you discuss any questions you have with your health care provider. Document Released: 09/06/2001 Document Revised: 06/03/2018 Document Reviewed: 01/14/2018 [employer] Patient Education 2020 [employer]. Deep Vein Thrombosis Deep vein thrombosis (DVT) is a condition in which a blood clot forms in a deep vein, such as a lower leg, thigh, or arm vein. A clot is blood that has thickened into a gel or solid. This condition is dangerous. It can lead to serious and even life-threatening complications if the clot travels to the lungs and causes a blockage (pulmonary embolism). It can also damage veins in the leg. This can result in leg pain, swelling, discoloration, and sores (post- thrombotic syndrome). What are the causes? This condition may be caused by: A slowdown of blood flow. Damage to a vein. A condition that causes blood to clot more easily, such as an inherited clotting disorder. What increases the risk? The following factors may make you more likely to develop this condition: Being overweight. Being older, especially over age 60. Sitting or lying down for more than four hours. Being in the hospital. Lack of physical activity (sedentary lifestyle). , being in childbirth, or having recently given . Taking medicines that contain estrogen, such as medicines to prevent . Smoking. A history of any of the following: ? Blood clots or a blood clotting disease. ? Peripheral vascular disease. ? Inflammatory bowel disease. ? Cancer. ? Heart disease. ? Genetic conditions that affect how your blood clots, such as Factor V Leiden mutation. ? Neurological diseases that affect your legs (leg paresis). ? A recent injury, such as a car accident. ? Major or lengthy surgery. ? A central line placed inside a large vein. What are the signs or symptoms? Symptoms of this condition include: Swelling, pain, or tenderness in an arm or leg. Warmth, redness, or discoloration in an arm or leg. If the clot is in your leg, symptoms may be more noticeable or worse when you stand or walk. Some people may not develop any symptoms. How is this diagnosed? This condition is diagnosed with: A medical history and physical exam. Tests, such as: ? Blood tests. These are done to check how well your blood clots. ? Ultrasound. This is done to check for clots. ? Venogram. For this test, contrast dye is injected into a vein and X-rays are taken to check for anyclots. How is this treated? Treatment for this condition depends on: The cause of your DVT. Your risk for bleeding or developing more clots. Any other medical conditions that you have. Treatment may include: Taking a blood thinner (anticoagulant). This type of medicine prevents clots from forming. It may be taken by mouth, injected under the skin, or injected through an IV (catheter). Injecting clot-dissolving medicines into the affected vein (catheter-directed thrombolysis). Having surgery. Surgery may be done to: ? Remove the clot. ? Place a filter in a large vein to catch blood clots before they reach the lungs. Some treatments may be continued for up to six months. Follow these instructions at home: If you are taking blood thinners: Take the medicine exactly as told by your health care provider. Some blood thinners need to be taken at the same time every day. Do not skip a dose. Talk with your health care provider before you take any medicines that contain aspirin or NSAIDs. These medicines increase your risk for dangerous bleeding. Ask your health care provider about foods and drugs that could change the way the medicine works (may interact). Avoid those things if your health care provider tells you to do so. Blood thinners can cause easy bruising and may make it difficult to stop bleeding. Because of this: ? Be very careful when using knives, scissors, or other sharp objects. ? Use an electric razor instead of a blade. ? Avoid activities that could cause injury or bruising, and follow instructions about how to prevent falls. Wear a medical alert bracelet or carry a card that lists what medicines you take. General instructions Take ftys-wom-qcerjik and prescription medicines only as told by your health care provider. Return to your normal activities as told by your health care provider. Ask your health care provider what activities are safe for you. Wear compression stockings if recommended by your health care provider. Keep all follow-up visits as told by your health care provider. This is important. How is this prevented? To lower your risk of developing this condition again: For 30 or more minutes every day, do an activity that: ? Involves moving your arms and legs. ? Increases your heart rate. When traveling for longer than four hours: ? Exercise your arms and legs every hour. ? Drink plenty of water. ? Avoid drinking alcohol. Avoid sitting or lying for a long time without moving your legs. If you have surgery or you are hospitalized, ask about ways to prevent blood clots. These may include taking frequent walks or using anticoagulants. Stay at a healthy weight. If you are a woman who is older than age 35, avoid unnecessary use of medicines that contain estrogen, such as some control pills. Do not use any products that contain nicotine or tobacco, such as cigarettes and e-cigarettes. Thisis especially important if you take estrogen medicines. If you need help quitting, ask your health care provider. Contact a health care provider if: You miss a dose of your blood thinner. Your menstrual period is heavier than usual. You have unusual bruising. Get help right away if: You have: ? New or increased pain, swelling, or redness in an arm or leg. ? Numbness or tingling in an arm or leg. ? Shortness of breath. ? Chest pain. ? A rapid or irregular heartbeat. ? A severe headache or confusion. ? A cut that will not stop bleeding. There is blood in your vomit, stool, or urine. You have a serious fall or accident, or you hit your head. You feel light-headed or dizzy. You cough up blood. These symptoms may represent a serious problem that is an emergency. Do not wait to see if the symptoms will go away. Get medical help right away. Call your local emergency services (911 in the [place] Do not drive yourself to the hospital. Summary Deep vein thrombosis (DVT) is a condition in which a blood clot forms in a deep vein, such as a lower leg, thigh, or arm vein. Symptoms can include swelling, warmth, pain, and redness in your leg or arm. This condition may be treated with a blood thinner (anticoagulant medicine), medicine that is injected to dissolve blood clots,compression stockings, or surgery. If you are prescribed blood thinners, take them exactly as told. This information is not intended to replace advice given to you by your health care provider. Make sure you discuss any questions you have with your health care provider. Document Released: 05/31/2006 Document Revised: 05/13/2018 Document Reviewed: 10/29/2017 [employer] Patient Education 2020 [employer]. Nausea and Vomiting, Adult Nausea is feeling sick to your stomach or feeling that you are about to throw up (vomit). Vomiting is when food in your stomach is thrown up and out of the mouth. Throwing up can make you feel weak. It can also make you lose too much water in your body (get dehydrated). If you lose too much water in your body, you may: Feel tired. Feel thirsty. Have a dry mouth. Have cracked lips. Go pee (urinate) less often. Older adults and people with other diseases or a weak body defense system (immune system) are at higher risk for losing too much water in the body. If you feel sick to your stomach and you throw up, it is important to follow instructions from your doctor about how to take care of yourself. Follow these instructions at home: Watch your symptoms for any changes. Tell your doctor about them. Follow these instructions to carefor yourself at home. Eating and drinking Take an ORS (oral rehydration solution). This is a drink that is sold at pharmacies and stores. Drink clear fluids in small amounts as you are able, such as: ? Water. ? Ice chips. ? Fruit juice that has water added (diluted fruit juice). ? Low-calorie sports drinks. Eat bland, bnlr-zp-uyuovo foods in small amounts as you are able, such as: ? Bananas. ? Applesauce. ? Rice. ? Low-fat (lean) meats. ? [place]. ? Crackers. Avoid drinking fluids that have a lot of sugar or caffeine in them. This includes energy drinks, sports drinks, and soda. Avoid alcohol. Avoid spicy or fatty foods. General instructions Take fzqg-jhs-fsatzdx and prescription medicines only as told by your doctor. Drink enough fluid to keep your pee (urine) pale yellow. Wash your hands often with soap and water. If you cannot use soap and water, use hand french lecturer. Make sure that all people in your home wash their hands well and often. Rest at home while you get better. Watch your condition for any changes. Take slow and deep breaths when you feel sick to your stomach. Keep all follow-up visits as told by your doctor. This is important. Contact a doctor if: Your symptoms get worse. You have new symptoms. You have a fever. You cannot drink fluids without throwing up. You feel sick to your stomach for more than 2 days. You feel light-headed or dizzy. You have a headache. You have muscle cramps. You have a rash. You have pain while peeing. Get help right away if: You have pain in your chest, neck, arm, or jaw. You feel very weak or you pass out (faint). You throw up again and again. You have throw up that is bright red or looks like black coffee grounds. You have bloody or black poop (stools) or poop that looks like tar. You have a very bad headache, a stiff neck, or both. You have very bad pain, cramping, or bloating in your belly (abdomen). You have trouble breathing. You are breathing very quickly. Your heart is beating very quickly. Your skin feels cold and clammy. You feel confused. You have signs of losing too much water in your body, such as: ? Dark pee, very little pee, or no pee. ? Cracked lips. ? Dry mouth. ? Sunken eyes. ? Sleepiness. ? Weakness. These symptoms may be an emergency. Do not wait to see if the symptoms will go away. Get medical help right away. Call your local emergency services (911 in the [place] Do not drive yourself to the hospital. Summary Nausea is feeling sick to your stomach or feeling that you are about to throw up (vomit). Vomiting is when food in your stomach is thrown up and out of the mouth. Follow instructions from your doctor about eating and drinking to keep from losing too much water in your body. Take burp-gft-dccghrh and prescription medicines only as told by your doctor. Contact your doctor if your symptoms get worse or you have new symptoms. Keep all follow-up visits as told by your doctor. This is important. This information is not intended to replace advice given to you by your health care provider. Make sure you discuss any questions you have with your health care provider. Document Released: 11/16/2008 Document Revised: 09/22/2019 Document Reviewed: 11/08/2018 [employer] Patient Education 2020 [employer]. Endometrial Ablation Endometrial ablation is a procedure that destroys the thin inner layer of the lining of the uterus (endometrium). This procedure may be done: To stop heavy periods. To stop bleeding that is causing anemia. To control irregular bleeding. To treat bleeding caused by small tumors (fibroids) in the endometrium. This procedure is often an alternative to major surgery, such as removal of the uterus and cervix (hysterectomy). As a result of this procedure: You may not be able to have children. However, if you are premenopausal (you have not gone through menopause): ? You may still have a small chance of getting . ? You will need to use a reliable method of control after the procedure to prevent . You may stop having a menstrual period, or you may have only a small amount of bleeding during yourperiod. Menstruation may return several years after the procedure. Tell a health care provider about: Any allergies you have. All medicines you are taking, including vitamins, herbs, eye drops, creams, and dkiy-xrb-udgenpp medicines. Any problems you or family members have had with the use of anesthetic medicines. Any blood disorders you have. Any surgeries you have had. Any medical conditions you have. What are the risks? Generally, this is a safe procedure. However, problems may occur, including: A hole (perforation) in the uterus or bowel. Infection of the uterus, bladder, or vagina. Bleeding. Damage to other structures or organs. An air bubble in the lung (air embolus). Problems with after the procedure. Failure of the procedure. Decreased ability to diagnose cancer in the endometrium. What happens before the procedure? You will have tests of your endometrium to make sure there are no pre-cancerous cells or cancer cells present. You may have an ultrasound of the uterus. You may be given medicines to thin the endometrium. Ask your health care provider about: ? Changing or stopping your regular medicines. This is especially important if you take diabetes medicines or blood thinners. ? Taking medicines such as aspirin and ibuprofen. These medicines can thin your blood. Do not take these medicines before your procedure if your doctor tells you not to. Plan to have someone take you home from the hospital or clinic. What happens during the procedure? You will lie on an exam table with your feet and legs supported as in a pelvic exam. To lower your risk of infection: ? Your health care team will wash or sanitize their hands and put on germ-free (sterile) gloves. ? Your genital area will be washed with soap. An IV tube will be inserted into one of your veins. You will be given a medicine to help you relax (sedative). A surgical instrument with a light and camera (resectoscope) will be inserted into your vagina and moved into your uterus. This allows your surgeon to see inside your uterus. Endometrial tissue will be removed using one of the following methods: ? Radiofrequency. This method uses a radiofrequency-alternating electric current to remove the endometrium. ? Cryotherapy. This method uses extreme cold to freeze the endometrium. ? Heated-free liquid. This method uses a heated saltwater (saline) solution to remove the endometrium. ? Microwave. This method uses high-energy microwaves to heat up the endometrium and remove it. ? Thermal balloon. This method involves inserting a catheter with a balloon tip into the uterus. The balloon tip is filled with heated fluid to remove the endometrium. The procedure may vary among health care providers and hospitals. What happens after the procedure? Your blood pressure, heart rate, breathing rate, and blood oxygen level will be monitored until themedicines you were given have worn off. As tissue healing occurs, you may notice vaginal bleeding for 4 6 weeks after the procedure. You may also experience: ? Cramps. ? Thin, watery vaginal discharge that is light pink or brown in color. ? A need to urinate more frequently than usual. ? Nausea. Do not drive for 24 hours if you were given a sedative. Do not have sex or insert anything into your vagina until your health care provider approves. Summary Endometrial ablation is done to treat the many causes of heavy menstrual bleeding. The procedure may be done only after medications have been tried to control the bleeding. Plan to have someone take you home from the hospital or clinic. This information is not intended to replace advice given to you by your health care provider. Make sure you discuss any questions you have with your health care provider. Document Released: 04/09/2005 Document Revised: 11/15/2018 Document Reviewed: 06/17/2017 [employer] Patient Education 2020 [employer] Hysteroscopy, Care After This sheet gives you information about how to care for yourself after your procedure. Your health care provider may also give you more specific instructions. If you have problems or questions, contact your health care provider. What can I expect after the procedure? After the procedure, it is common to have: Cramping. Bleeding. This can vary from light spotting to menstrual-like bleeding. Follow these instructions at home: Activity Rest for 1 2 days after the procedure. Do not douche, use tampons, or have sex for 2 weeks after the procedure, or until your health care provider approves. Do not drive for 24 hours after the procedure, or for as long as told by your health care provider. Do not drive, use heavy machinery, or drink alcohol while taking prescription pain medicines. Medicines Take xmdh-ylm-tabozux and prescription medicines only as told by your health care provider. Do not take aspirin during recovery. It can increase the risk of bleeding. General instructions Do not take baths, swim, or use a hot tub until your health care provider approves. Take showers instead of baths for 2 weeks, or for as long as told by your health care provider. To prevent or treat constipation while you are taking prescription pain medicine, your health care provider may recommend that you: ? Drink enough fluid to keep your urine clear or pale yellow. ? Take jooo-rtg-qposrak or prescription medicines. ? Eat foods that are high in fiber, such as fresh fruits and vegetables, whole grains, and beans. ? Limit foods that are high in fat and processed sugars, such as fried and sweet foods. Keep all follow-up visits as told by your health care provider. This is important. Contact a health care provider if: You feel dizzy or lightheaded. You feel nauseous. You have abnormal vaginal discharge. You have a rash. You have pain that does not get better with medicine. You have chills. Get help right away if: You have bleeding that is heavier than a normal menstrual period. You have a fever. You have pain or cramps that get worse. You develop new abdominal pain. You faint. You have pain in your shoulders. You have shortness of breath. Summary After the procedure, you may have cramping and some vaginal bleeding. Do not douche, use tampons, or have sex for 2 weeks after the procedure, or until your health care provider approves. Do not take baths, swim, or use a hot tub until your health care provider approves. Take showers instead of baths for 2 weeks, or for as long as told by your health care provider. Report any unusual symptoms to your health care provider. Keep all follow-up visits as told by your health care provider. This is important. This information is not intended to replace advice given to you by your health care provider. Make sure you discuss any questions you have with your health care provider. Document Released: 03/21/2014 Document Revised: 05/13/2018 Document Reviewed: 06/29/2017 [employer] Patient Education 2020 [employer]. Dilation and Curettage or Vacuum Curettage, Care After These instructions give you information about caring for yourself after your procedure. Your doctormay also give you more specific instructions. Call your doctor if you have any problems or questions after your procedure. Follow these instructions at home: Activity Do not drive or use heavy machinery while taking prescription pain medicine. For 24 hours after your procedure, avoid driving. Take short walks often, followed by rest periods. Ask your doctor what activities are safe for you.After one or two days, you may be able to return to your normal activities. Do not lift anything that is heavier than 10 lb (4.5 kg) until your doctor approves. For at least 2 weeks, or as long as told by your doctor: ? Do not douche. ? Do not use tampons. ? Do not have sex. General instructions Take fsif-obp-bhufqae and prescription medicines only as told by your doctor. This is very important if you take blood thinning medicine. Do not take baths, swim, or use a hot tub until your doctor approves. Take showers instead of baths. Wear compression stockings as told by your doctor. It is up to you to get the results of your procedure. Ask your doctor when your results will be ready. Keep all follow-up visits as told by your doctor. This is important. Contact a doctor if: You have very bad cramps that get worse or do not get better with medicine. You have very bad pain in your belly (abdomen). You cannot drink fluids without throwing up (vomiting). You get pain in a different part of the area between your belly and thighs (pelvis). You have bad-smelling discharge from your vagina. You have a rash. Get help right away if: You are bleeding a lot from your vagina. A lot of bleeding means soaking more than one sanitary mann an hour, for 2 hours in a row. You have clumps of blood (blood clots) coming from your vagina. You have a fever or chills. Your belly feels very tender or hard. You have chest pain. You have trouble breathing. You cough up blood. You feel dizzy. You feel light-headed. You pass out (faint). You have pain in your neck or shoulder area. Summary Take short walks often, followed by rest periods. Ask your doctor what activities are safe for you.After one or two days, you may be able to return to your normal activities. Do not lift anything that is heavier than 10 lb (4.5 kg) until your doctor approves. Do not take baths, swim, or use a hot tub until your doctor approves. Take showers instead of baths. Contact your doctor if you have any symptoms of infection, like bad-smelling discharge from your vagina. This information is not intended to replace advice given to you by your health care provider. Make sure you discuss any questions you have with your health care provider. Document Released: 03/09/2009 Document Revised: 05/13/2018 Document Reviewed: 02/15/2017 [employer] Patient Education 2020 [employer] Additional Information VACCINATE! IT SAVES LIVES! Members of the community who have not yet received the COVID-19 vaccine and would like to receive it can visit one of [facility] vaccine clinics. There are many vaccine clinic locations within the [facility]. For locations and available times, please visit [email or web address] It is important to note that some COVID mobile vaccine clinics are held outdoors and may be canceled in rainy or stormy conditions. To learn more about pediatric vaccinations (ages 5-11), we invite you to visit the [facility] webpage. [email or web address] learn more about the COVID-19 vaccine, we invite you to visit the CDC website for a list of frequently asked questions.https://www.cdc.gov/coronavirus/2019-ncov/vaccines/faq.html [facility] Patient Portal Access Instructions: Stay connected with your healthcare team and access your personal medical information anytime with the [email or web address] Patient Portal. Please follow the directions below to create your [email or web address] account: 1.Access the email account you provided upon registration to the hospital/physician office.2.Look for an invitation email from [facility].3.Open the email and access the invitation link: AcceptInvitation to [email or web address].4.Fill in the required laws to create your account. To access your account, visit [email or web address]. Click the blue button labeled Access Patient Portal and then log in with the username and password that you created in the steps above. You will be able to view your test results, lab results, a summary of your visits, upcoming appointments and more. There is also a convenient messaging option where you can send secure messages to your Neov[employer]. In addition, you will have the ability to download any documents or summaries to your computer and/or send the information securely to a physician. Remember that your healthcare information is confidential, so carefully consider who you will allowto register on the [email or web address] Patient Portal for access to your information. You can also access the [email or web address] Patient Portal on the [facility] gwen. Simply click on Patient Portal and then log into your account. If you would like to receive a full copy of your medical records, please contact the [facility] Medical Records Department by calling [phone], Wednesday through Wednesday between 8 a.m. and 4:30 p.m. HOW TO SAFELY DISPOSE OF PRESCRIPTION MEDICATIONS Please use one of the following methods to safely dispose of your unused medications. 1.Use a drug disposal kit: the drug disposal pouch allows you to safely discard your old and unuseddrugs. Ask your nurse to give you one when you are discharged.2.Visit a local take-back location: Many local pharmacies and police departments have programs that collect old and unwanted prescriptiondrugs. Call your local pharmacy or go to http://bit.B&[employer] Loudspeakers/7V2Cp0z to find one close to you.3.Make use of household items: Use cat litter or old coffee grounds to dispose medications if other options arenot available. Mix your drugs with these household products, seal them in an airtight container andthrow it into the garbage. Call [facility]: [phone] to be sure your drugs can be disposed of in this way. Some medicines may require a different approach.4.Never flush your medications down the toilet. IF YOU HAVE BEEN PRESCRIBED AN OPIOID FOR PAIN If you have been prescribed an opioid (such as hydrocodone, oxycodone or morphine), it is critical to understand the possible side effects and risks of opioid pain medications. Even when taken as directed, opioids can have several side effects including: Tolerance, meaning you might need to take more of a medication for the same pain relief. Nausea, vomiting and/or constipation. Sleepiness, dizziness, dry mouth, confusion, depression or itching. Physical dependence, meaning you have withdrawal symptoms when a medication is stopped, can develop within a few days. KNOW YOUR RESPONSIBILITIES It is important to know exactly how much and how often to take the opioid pain medications you are prescribed. Never take opioids in higher amounts or more often than prescribed. Do not combine opioids with alcohol or other drugs that cause drowsiness, such as benzodiazepines, also known as benzos, including diazepam and alprazolam, muscle relaxants or sleep aids. Never sell or share prescription opioids. This is illegal. Store opioids in a secure place and out of reach of others (including children, family, friends and visitors). The last page of this document has been signed and retained as a CHART COPY. Signatures Patient Education Materials Mole Excision General Anesthesia, Adult, Care After Deep Vein Thrombosis Nausea and Vomiting, Adult, Iemw-ro-Ftdh Endometrial Ablation Hysteroscopy, Care After Dilation and Curettage or Vacuum Curettage, Care After, Ncxk-jd-Yrdj Medication Leaflets My discharge plan and instructions have been reviewed and explained to me and I,LILIA OLEA (more content not included)... [facility]11-11-2024 Note History and Physical Update I have examined the patient; reviewed the H&P and there are no changes to the H&P unless noted below. Digitally Signed by EDU FERNANDEZ MD on 04/24/2024 11:41 AM [facility]11-11-2024 Anesthesiology Consult note Patient: LILIA OLEA Age: 53 years Sex: Female : 1970 Associated Diagnoses: None Author: ASHLEY GIBSON APRN-STEPHANIA Preoperative Information Anesthesia history Patient's history: negative. Family's history: negative. Health Status Allergies: Allergic Reactions (Selected) Severe Aspirin- Sob - shortness of breath. Nonallergic Reactions (Selected) Mild AmLODIPine- Malaise., Allergies (2) ActiveSeverityReaction aspirinSevereSOB - Shortness of breath amLODIPineMildMalaise Current medications: (Selected) Inpatient Medications Ordered Mefoxin: 2 gram(s), 200 mL/hr, IV Piggyback, PREOP pharm NS 500 mL 500 mL: 20 mL/hr, Intravenous Documented Medications Documented IRON (ferrous sulfate 325 mg) 65 mg oral tablet: 325 mg, 1 tab(s), Oral, BIDM, Take with food., 60 tab(s), 3 Refill(s) Metoprolol Succinate ER 100 mg oral TABLET extended release: TAKE 1 TABLET BY MOUTH ONCE DAILY Multivitamin: 1 tab(s), Oral, Daily, 0 Refill(s) NIFEdipine (Eqv-Adalat CC) 90 mg oral tablet, extended release: TAKE 1 TABLET BY MOUTH ONCE DAILY Potassium Chloride (Eqv-K-Tab) 10 mEq oral tablet, extended release: TAKE 1 TABLET BY MOUTH TWICE DAILY Red Yeast Rice 600 mg oral capsule: 1,200 mg, 2 cap(s), Oral, TIDM, 0 Refill(s) Vitamin C: qDay, 0 Refill(s) Vitamin D (3) 45 units oral capsule: 0 Refill(s) lisinopril 40 mg oral tablet: TAKE 1 TABLET BY MOUTH ONCE DAILY spironolactone 25 mg oral tablet: 25 mg, 1 tab(s), Oral, qDayM, 0 Refill(s), Medications (2) Active Scheduled: (1) ceFOXitin 2 gram(s), IV Piggyback, PREOP pharm Continuous: (1) Sodium Chloride 0.9% intravenous solution 500 mL 500 mL, Intravenous, 20 mL/hr PRN: (0) Problem list: Medical Acute mastitis of left breast / SNOMED CT 686780265 / Confirmed BMI 40.0-44.9, adult / SNOMED CT 9664533575 / Confirmed Hypertension / SNOMED CT 5671596283 / Confirmed Palpitations / SNOMED CT 117320453 / Confirmed, Active Problems (4) Acute mastitis of left breast BMI 40.0-44.9, adult Hypertension Palpitations Histories Past Medical History: No active or resolved past medical history items have been selected or recorded. Family History: Hypertension Mother Sister Brother Kidney disease Mother Macular disease Father Procedure history: [place] tooth (24120063). Closed reduction of dislocation of upper limb (340109731). Social History: Social & Psychosocial Habits Alcohol 04/24/2024 Use: Never Substance Abuse 04/24/2024 Use: Never Tobacco 04/24/2024 Tobacco Use: Never (less than 100 in l Nutrition/Health 04/24/2024 Caffeine intake amount: 1 pop monthly Physical Examination Vital Signs 04/24/2024 10:35 EST Apical Heart Rate 76 bpm Respiratory Rate 15 br/min Systolic Blood Pressure Non-Invasive 131 mmHg Diastolic Blood Pressure Non-Invasive 77 mmHg Vital Signs (last 24 hrs) Last Charted Heart Rate Zxacdf59 bpm (APR 24 10:35) DSG267 mmHg (APR 24 10:35) DBP77 mmHg (APR 24 10:35) BMI39.14 (APR 24 10:47) Measurements from flowsheet : Measurements 04/24/2024 10:47 EST Body Mass Index 39.14 kg/m2 04/24/2024 10:35 EST Height 152.4 cm Admission Weight 90.9 kg [place] Body Weight 45.50 kg Admission Body Mass Index 39.14 m2 Pain assessment: Pain Assessment 04/24/2024 10:35 EST Primary Pain Intensity 0 Pain Scale Type 0-10 Pain scale . General: Alert and oriented. Airway: Normal temporomandibular joint mobility. Mallampati classification: II (soft palate, fauces, uvula visible). Dentition Evaluation: Denies loose/chipped teeth. Respiratory: Lungs are clear to auscultation, Respirations are non-labored. Cardiovascular: Normal rate, Regular rhythm. Neurologic: Alert, Oriented. Review / Management Results review: No qualifying data available , Lab results 04/24/2024 10:47 EST Designated Person #1 We May Share DHIRAJ GREENE EMMIE [phone] Designated Person #1 Relationship Spouse Privacy Restrictions Requested None Body Mass Index 39.14 kg/m2 Status No, per patient Sensory Deficits None Sleep Apnea Snore No Sleep Apnea Tired Yes Sleep Apnea Obstruction No Sleep Apnea Pressure Yes Sleep Apnea BMI Yes Sleep Apnea Age Yes Sleep Apnea Neck Yes Sleep Apnea Gender No Sleep Apnea Score 5 HI Diagnosed With Sleep Apnea No Advanced Directives No - refuses information Infectious Disease Symptoms Patient states no symptoms Infectious Disease Recent Exposure No Alcohol and Drug Use No Employee of Institutional Living No Health Care Employee No History of Exposure to TB No History of Positive Chest X-Ray for TB No History of Positive TB Skin Test No Homeless No Known Immunosuppression No Recent Immigrant No Resident of Institutional Living No Bloody Sputum No Fatigue No Fever No Loss of Appetite No Night Sweats No Persistent Cough > 3 Weeks No Weight Loss No Patient Aware Date/Time Of Surgery Yes Previous Surgery At This Facility No Pre-Op Patient Education NPO after midnight, No makeup, No jewelry, Responsible Republican, Aware of surgery location, Pre-op education done, No ordered medications, SSI prevention handout given SN - Preprocedure Comments Spoke with patient, Verbalizes/Nonverbally indicates understanding Anesthesia Evaluation Date/Time 04/19/2024 13:57 Anesthesia Evaluation Performed By ASHLEY GIBSON LPN INSTRUCTOR-ACCOUNTING SYSTEMS ANALYST Anesthesia Evaluation Result Approved Barriers to Learning None evident Teaching Method Explanation Preferred Spoken Language Maltese Preferred Written Language Maltese Teaching Evaluation Needs further teaching Safety Brochure Information Reviewed Unable to complete [facility]ts Video Viewed No Patient's Current Physicians SAKINA REDMAN - PCP Discharge To, Anticipated Home independently Prev Test Positive/Diagnosis w/COVID-19 No Current Quarantine/Isolated any Illness No Any Contact with Sick Animals/Birds No Traveled Anywhere in Last 30 Days No Lost Weight Unintentionally Recently No Eat Poorly Due to Decreased Appetite No Total MST Score 0 No Personal Devices, Patient Valuables Glasses Anesthesia/Transfusions Prior anesthesia Admission Note-Nursing Same Day Patient History 04/24/2024 10:41 EST Allergies Yes Anesthesia Extension Set Applied Yes Manager Inpatient On Yes Consent Form Signed Yes Patient Dressed In Hospital gown Pre-op Preparation Glasses removed, Hair pins removed, Undergarments removed History & Physical Update On Chart Yes History & Physical On Chart Yes Obstructive Sleep Apnea Assess Completed Yes Belongings At Bedside Dress, Glasses, Shoes, Undergarments Personal Home Medications Received No home medications were brought in Belongings to Security/Secured in Dept None NPO Status Maintained Allergy Band on and Verified Yes Patient ID Band on and Verified Yes Implants Verified Yes Pacemaker/AICD Verified Yes Site Verified by Patient/Family Yes Anesthesia Consent Signed Yes Blood Consent Signed Yes Last Fluid Intake 04/23/2024 23:45 Last Food Intake 04/23/2024 23:45 Last Void 04/24/2024 10:35 04/24/2024 10:35 EST Height 152.4 cm Admission Weight 90.9 kg [place] Body Weight 45.50 kg Admission Body Mass Index 39.14 m2 Apical Heart Rate 76 bpm Respiratory Rate 15 br/min Systolic Blood Pressure Non-Invasive 131 mmHg Diastolic Blood Pressure Non-Invasive 77 mmHg Primary Pain Intensity 0 Pain Scale Type 0-10 Pain scale Heart Rhythm Regular Respirations Unlabored All Lobes Breath Sounds Clear, Diminished Oxygen Therapy Room air Oxygen Saturation 97 % Oxygen Flow Rate 97 L/min Abdomen Description Non-distended Bowel Sounds All Quadrants Present Urinary Elimination Voiding, no difficulties Skin Temperature Warm Skin Description [place], Dry Skin Integrity Intact Mucous Membrane Color [place] Skin Moisture General Dry Characteristics of Speech Clear Level of Consciousness Alert Strength All Extremities Strong Affect/Behavior Appropriate, Calm, Cooperative Orientation Oriented x 4 Patient Identified Identification band, Verbal Arrival Mode Ambulatory Rubi Motor (2) Moves 4 extremities voluntarily or on command Rubi Respirations (2) Spontaneous respiration without support, RR > 10 Rubi Blood Pressure (2) BP 20% above or below preanesthetic level Rubi Pulse (2) Pulse 20% above or below preanesthetic level Rubi Oxygen Saturation (2) 94% or more Rubi Level of Consciousness (2) Fully awake Rubi III Score 12 Orientation Assessment Oriented x 4 Assistive Device None Standard Safety ID band on, Allergy Band on, Call device within reach, Bed in low position, Wheels locked, Non-Slip footwear 04/24/2024 10:23 EST CSummary CSUMMARY . Assessment and Plan [place] Society of Anesthesiologists (ASA) physical status classification: Class III. Anesthetic Preoperative Plan Anesthetic technique: General. Maintenance airway: Laryngeal mask airway. Postoperative pain management: Per surgeon. Risks discussed: nausea, vomiting, sore throat, dental injury, hypotension, allergic reaction, serious complications. Informed consent: signed by patient. Digitally Signed by ASHLEY GIBSON on 04/24/2024 10:53 AM [facility]02-23-2023 Note ORIGINAL FROM: [address] [address] PROCEDURE FOR: LILIA OLEA [address] [place] [address] Home: PID#: [id number] Exam#: [id number] : 1970 Age: 51 TO: LESLEI LADD LPN INSTRUCTOR SIDEWALK INSPECTOR [address] [place], [place] [address] Fax: NO FAX EXAMINATION: ULTRASOUND OF THE LEFT BREAST 08/06/2022 9:59 am TECHNIQUE: Color flow and real-time targeted ultrasound of the left breast retroareolar region and lower outer and lower inner quadrants were performed. COMPARISON: 06/29/2022 HISTORY: ORDERING SYSTEM PROVIDED HISTORY: Reason for Exam: Irregular shadowing throughout left breast 1 month follow-up left breast mastitis FINDINGS: The previously seen irregular hypoechoic shadowing areas in the left breast have resolved. There are a few dilated ducts. IMPRESSION: No sonographic evidence of malignancy. Clinical follow up is recommended. The patient may return to annual mammographic screening. BIRADS: MAMMOGRAM BI-RADS: 2: Benign finding RECALL: return to screening RECALL TYPE: mammo LETTER SENT: Normal BI-RADS 1 and 2 Interpreted by: Victor Hugo Reid MD Preliminary Report By: Victor Hugo Reid MD Electronically signed By Victor Hugo Reid MD Dictated Date: 08/06/2022 12:00:44 PM Prelim Date: 08/06/2022 12:06:19 PM Sign Date: 08/06/2022 12:06:19 PM Ordering Provider: LESLIE LADD CLINICAL: MASTODYNIA. Technical Proposal Writer: JOLYNN TRIPP RDMS letter sent: Normal BI-RADS 1 and 2 Ultrasound BI-RADS: 2 Benign [facility]02-23-2023 Note ORIGINAL FROM: [address] [address] PROCEDURE FOR: LILIA OLEA [address] [place] [address] Home: PID#: [id number] Exam#: [id number] : 1970 Age: 51 TO: LESLIE LADD LPN INSTRUCTOR SIDEWALK INSPECTOR [address] [place] [id number] Fax: NO FAX EXAMINATION: DIAGNOSTIC DIGITAL LEFT BREAST MAMMOGRAM WITH TOMOSYNTHESIS, 08/06/2022 9:58 am TECHNIQUE: Diagnostic mammography of the left breast was performed with tomosynthesis. 2D standard and 3D tomosynthesis combination imaging performed through the left breast. Computer aided detection was utilized in the interpretation of this exam. Current study was also evaluated with a Computer Aided Detection (CAD) system. COMPARISON: 06/29/2022 HISTORY: ORDERING SYSTEM PROVIDED HISTORY: Reason for Exam: Irregular shadowing throughout left breast Follow-up left breast mastitis FINDINGS: BREAST DENSITY: Heterogeneously dense The global asymmetry in the left breast is less prominent compared to the previous exam. No significant masses, calcifications, or other findings. IMPRESSION: No mammographic evidence of malignancy. An ultrasound will be performed today and will be reported separately. BIRADS: MAMMOGRAM BI-RADS: 0: Needs addl evaluation RECALL: immediate RECALL TYPE: Left US LETTER SENT: Normal-Needs additional work up BI-RADS 0 Interpreted by: Victor Hugo Reid MD Preliminary Report By: Victor Hugo Reid MD Electronically signed By Victor Hugo Reid MD Dictated Date: 08/06/2022 11:56:41 AM Prelim Date: 08/06/2022 12:00:34 PM Sign Date: 08/06/2022 12:00:34 PM Ordering Provider: LESLIE LADD CLINICAL: ASYMETRIC DENSITY LEFT BREAST. Technical Proposal Writer: CLEO JENNINGS RT(R) (M) letter sent: Normal-Needs additional work up BI-RADS 0 Mammogram BI-RADS: 0 Indeterminate [facility]02-23-2023 Note ORIGINAL FROM: [facility] [address], [place] [address] PROCEDURE FOR: LILIA OLEA [address] [place] [address] Home: PID#: [id number] Exam#: [id number] : 1970 Age: 51 TO: LESLIE LADD LPN INSTRUCTOR SIDEWALK INSPECTOR [address] [place], [place] [address] Fax: NO FAX EXAMINATION: ULTRASOUND OF THE LEFT BREAST 08/06/2022 9:59 am TECHNIQUE: Color flow and real-time targeted ultrasound of the left breast retroareolar region and lower outer and lower inner quadrants were performed. COMPARISON: 06/29/2022 HISTORY: ORDERING SYSTEM PROVIDED HISTORY: Reason for Exam: Irregular shadowing throughout left breast 1 month follow-up left breast mastitis FINDINGS: The previously seen irregular hypoechoic shadowing areas in the left breast have resolved. There are a few dilated ducts. IMPRESSION: No sonographic evidence of malignancy. Clinical follow up is recommended. The patient may return to annual mammographic screening. BIRADS: MAMMOGRAM BI-RADS: 2: Benign finding RECALL: return to screening RECALL TYPE: mammo LETTER SENT: Normal BI-RADS 1 and 2 Interpreted by: Victor Hugo Reid MD Preliminary Report By: Victor Hugo Reid MD Electronically signed By Victor Hugo Reid MD Dictated Date: 08/06/2022 12:00:44 PM Prelim Date: 08/06/2022 12:06:19 PM Sign Date: 08/06/2022 12:06:19 PM Ordering Provider: LESLIE LADD CLINICAL: MASTODYNIA. Technical Proposal Writer: JOLYNN TRIPP RDLA letter sent: Normal BI-RADS 1 and 2 Ultrasound BI-RADS: 2 [facility]02-23-2023 Note ORIGINAL FROM: [address] [address] PROCEDURE FOR: LILIA OLEA [address] [place] [address] Home: PID#: [id number] Exam#: [id number] : 1970 Age: 51 TO: LESLIE LADD APRN SIDEWALK INSPECTOR [address] [place], [place] [address] Fax: NO FAX EXAMINATION: DIAGNOSTIC DIGITAL LEFT BREAST MAMMOGRAM WITH TOMOSYNTHESIS, 08/06/2022 9:58 am TECHNIQUE: Diagnostic mammography of the left breast was performed with tomosynthesis. 2D standard and 3D tomosynthesis combination imaging performed through the left breast. Computer aided detection was utilized in the interpretation of this exam. Current study was also evaluated with a Computer Aided Detection (CAD) system. COMPARISON: 06/29/2022 HISTORY: ORDERING SYSTEM PROVIDED HISTORY: Reason for Exam: Irregular shadowing throughout left breast Follow-up left breast mastitis FINDINGS: BREAST DENSITY: Heterogeneously dense The global asymmetry in the left breast is less prominent compared to the previous exam. No significant masses, calcifications, or other findings. IMPRESSION: No mammographic evidence of malignancy. An ultrasound will be performed today and will be reported separately. BIRADS: MAMMOGRAM BI-RADS: 0: Needs addl evaluation RECALL: immediate RECALL TYPE: Left US LETTER SENT: Normal-Needs additional work up BI-RADS 0 Interpreted by: Victor Hugo Reid MD Preliminary Report By: Victor Hugo Reid MD Electronically signed By Victor Hugo Reid MD Dictated Date: 08/06/2022 11:56:41 AM Prelim Date: 08/06/2022 12:00:34 PM Sign Date: 08/06/2022 12:00:34 PM Ordering Provider: LESLIE LADD CLINICAL: ASYMETRIC DENSITY LEFT BREAST. Technical Proposal Writer: CLEO JENNINGS RT(R) (M) letter sent: Normal-Needs additional work up BI-RADS 0 Mammogram BI[facility]RADS: 0 [facility] Note ORIGINAL FROM: [address] [address] PROCEDURE FOR: LILIA OLEA [address] [place] [address] Home: PID#: [id number] Exam#: [id number] : 1970 Age: 51 TO: CHERELLE DELACRUZ MD [facility] [address] [place] [address] EXAMINATION: ULTRASOUND OF THE LEFT BREAST 06/29/2022 1:35 pm TECHNIQUE: Color flow and real-time targeted ultrasound of the left breast lower inner and lower outer quadrants were performed. COMPARISON: 06/29/2022 HISTORY: ORDERING SYSTEM PROVIDED HISTORY: Reason for Exam: suspected abscess. mastitis. Palpable painful lump left breast 6 o'clock. Patient reports the redness and tenderness is improving since being on antibiotics. FINDINGS: There is irregular hypoechoic shadowing tissue throughout the left breast. There are multiple dilated ducts with debris. There are multiple benign-appearing complicated cysts in the 6 o'clock area. These findings correlate with the mammographic asymmetry in the palpable lump. IMPRESSION: The irregular shadowing tissue throughout the left breast most likely represent infectious/inflammatory change and appears probably benign. No drainable fluid collections. Clinical follow-up and continued antibiotic therapy is recommended. A follow-up diagnostic left mammogram and left ultrasound are recommended to demonstrate resolution of the findings. BIRADS: MAMMOGRAM BI-RADS: 3: Probably benign RECALL: 1 month follow-up RECALL TYPE: Left mammo+US LETTER SENT: Probably Benign BI-RADS 3 Interpreted by: Victor Hugo Reid MD Preliminary Report By: Victor Hugo Reid MD Electronically signed By Victor Hugo Reid MD Dictated Date: 06/29/2022 2:29:36 PM Prelim Date: 06/29/2022 2:34:30 PM Sign Date: 06/29/2022 2:34:30 PM Ordering Provider: CHERELLE DELACRUZ CLINICAL: PALPABLE LUMP LEFT BREAST. copy to: AHSAN REDMAN MD, ph: [phone], fax: [phone] Technical Proposal Writer: JANNETH ROMO(R) [facility] letter sent: Probably Benign BI-RADS 3 Ultrasound BI-RADS: 3 Probably benign [facility]01-16-2023 Note ORIGINAL FROM: [facility] [address], [place] [address] PROCEDURE FOR: LILIA OLEA [address] [place] [address] Home: PID#: [id number] Exam#: [id number] : 1970 Age: 51 TO: CHERELLE DELACRUZ MD [facility] [address] [place] [address] EXAMINATION: ULTRASOUND OF THE LEFT BREAST 06/29/2022 1:35 pm TECHNIQUE: Color flow and real-time targeted ultrasound of the left breast lower inner and lower outer quadrants were performed. COMPARISON: 06/29/2022 HISTORY: ORDERING SYSTEM PROVIDED HISTORY: Reason for Exam: suspected abscess. mastitis. Palpable painful lump left breast 6 o'clock. Patient reports the redness and tenderness is improving since being on antibiotics. FINDINGS: There is irregular hypoechoic shadowing tissue throughout the left breast. There are multiple dilated ducts with debris. There are multiple benign-appearing complicated cysts in the 6 o'clock area. These findings correlate with the mammographic asymmetry in the palpable lump. IMPRESSION: The irregular shadowing tissue throughout the left breast most likely represent infectious/inflammatory change and appears probably benign. No drainable fluid collections. Clinical follow-up and continued antibiotic therapy is recommended. A follow-up diagnostic left mammogram and left ultrasound are recommended to demonstrate resolution of the findings. BIRADS: MAMMOGRAM BI-RADS: 3: Probably benign RECALL: 1 month follow-up RECALL TYPE: Left mammo+US LETTER SENT: Probably Benign BI-RADS 3 Interpreted by: Victor Hugo Reid MD Preliminary Report By: Victor Hugo Reid MD Electronically signed By Victor Hugo Reid MD Dictated Date: 06/29/2022 2:29:36 PM Prelim Date: 06/29/2022 2:34:30 PM Sign Date: 06/29/2022 2:34:30 PM Ordering Provider: CHERELLE DELACRUZ CLINICAL: PALPABLE LUMP LEFT BREAST. copy to: AHSAN REDMAN MD, ph: [phone], fax: [phone] Technical Proposal Writer: JANNETH ROMO(R) [facility] letter sent: Probably Benign BI-RADS 3 Ultrasound BI-RADS: 3 [facility] Note ORIGINAL FROM: [facility] [address], [place] [address] PROCEDURE FOR: LILIA OLEA [address] [place] [address] Home: PID#: [id number] Exam#: [id number] : 1970 Age: 51 [place]: [place] [address] [place], [place] [address] EXAMINATION: DIAGNOSTIC BILATERAL MAMMOGRAM WITH TOMOSYNTHESIS, 06/29/2022 12:45 pm TECHNIQUE: Tomosynthesis was performed as part of the diagnostic bilateral mammogram. 2D standard and 3D tomosynthesis combination imaging performed. Current study was also evaluated with a Computer Aided Detection (CAD) system. COMPARISON: None. HISTORY: Palpable lump and pain left breast 6 o'clock. Patient is currently on antibiotics and redness and tenderness has improved FINDINGS: BREAST DENSITY: Heterogeneously dense There is a 10 cm global asymmetry in the left breast central to the nipple. This correlates with the palpable lump. No other significant masses, calcifications, or other findings. IMPRESSION: The 10 cm global asymmetry in the left breast central to the nipple appears indeterminate. A left breast ultrasound performed today and reported separately. BIRADS: MAMMOGRAM BI-RADS: 0: Needs addl evaluation RECALL: immediate RECALL TYPE: Left US LETTER SENT: Abnormal-Needs additional work up BI-RADS 0 Interpreted by: Victor Hugo Reid MD Preliminary Report By: Victor Hugo Reid MD Electronically signed By Victor Hugo Reid MD Dictated Date: 06/29/2022 2:27:07 PM Prelim Date: 06/29/2022 2:29:27 PM Sign Date: 06/29/2022 2:29:27 PM Ordering Provider: OCTAVIANO SOSA CLINICAL: BASELINE LEFT BREAST PAIN. copy to: CHERELLE DELACRUZ MD, ph: [phone], fax: [phone] Technical Proposal Writer: KULDIP WALLACE RT (R) (M) (CT) letter sent: Abnormal-Needs additional work up BI-RADS 0 Mammogram BI-RADS: 0 [facility]inate[facility] Note ORIGINAL FROM: [facility] [address], [place] [address] PROCEDURE FOR: LILIA OLEA [address] [place] [address] Home: PID#: [id number] Exam#: [id number] : 1970 Age: 51 [place]: [place] [address] [place], [place] [address] EXAMINATION: DIAGNOSTIC BILATERAL MAMMOGRAM WITH TOMOSYNTHESIS, 06/29/2022 12:45 pm TECHNIQUE: Tomosynthesis was performed as part of the diagnostic bilateral mammogram. 2D standard and 3D tomosynthesis combination imaging performed. Current study was also evaluated with a Computer Aided Detection (CAD) system. COMPARISON: None. HISTORY: Palpable lump and pain left breast 6 o'clock. Patient is currently on antibiotics and redness and tenderness has improved FINDINGS: BREAST DENSITY: Heterogeneously dense There is a 10 cm global asymmetry in the left breast central to the nipple. This correlates with the palpable lump. No other significant masses, calcifications, or other findings. IMPRESSION: The 10 cm global asymmetry in the left breast central to the nipple appears indeterminate. A left breast ultrasound performed today and reported separately. BIRADS: MAMMOGRAM BI-RADS: 0: Needs addl evaluation RECALL: immediate RECALL TYPE: Left US LETTER SENT: Abnormal-Needs additional work up BI-RADS 0 Interpreted by: Victor Hugo Reid MD Preliminary Report By: Victor Hugo Reid MD Electronically signed By Victor Hugo Reid MD Dictated Date: 06/29/2022 2:27:07 PM Prelim Date: 06/29/2022 2:29:27 PM Sign Date: 06/29/2022 2:29:27 PM Ordering Provider: OCTAVIANO SOSA CLINICAL: BASELINE LEFT BREAST PAIN. copy to: CHERELLE DELACRUZ MD, ph: [phone], fax: [phone] Technical Proposal Writer: KULDIP WALLACE RT (R) (M) (CT) letter sent: Abnormal-Needs additional work up BI-RADS 0 Mammogram BI-RADS: 0 Indeterminate [facility] Future Appointments Appointment Date:06/29/2022 01:00:00 PM Scheduled Provider: Location:[facility] Appointment Type:MA Mammogram Diagnostic Bilateral w/ Ricardo Appointment Date:06/29/2022 02:30:00 PM Scheduled Provider: Location:[facility] Appointment Type:US Breast Left Complete Appointment Date:07/02/2022 03:00:00 PM Scheduled Provider:LESLIE LADD LPN INSTRUCTOR-SIDEWALK INSPECTOR Location:[facility] Appointment Type:BS LINTING MACHINE OPERATOR Future Scheduled Tests Radiology* MA Mammo Diagnostic Bilateral w/Chon 06/29/22 * US Breast Left Complete 06/29/22 [facility] Evaluation + Plan note Future Appointments Appointment Date:07/02/2022 03:00:00 PM Scheduled Provider:LESLIE LADD Location:[facility] Appointment Type:BS LINTING MACHINE OPERATOR [facility] Evaluation + Plan note Future Appointments Appointment Date:09/28/2022 11:00:00 AM Scheduled Provider: Location:[facility] Appointment Type:US Breast Left Limited Future Scheduled Tests Radiology* MA Mammo Diagnostic Left w/ Chon 08/02/22 * US Breast Left Limited 09/28/22 * US Breast Left Limited 08/02/22 [facility] Evaluation + Plan note Future Appointments Appointment Date:08/11/2022 03:00:00 PM Scheduled Provider:LESLIE LADD Location:[facility] Appointment Type:BS OV Follow Up Future Scheduled Tests Radiology* US Breast Left Limited 08/03/22 [facility] Evaluation + Plan note Future Appointments [facility] Hospital course Narrative No data available for this section [facility] Discharge instructions No data available for this section [facility] Progress note No data available for this section [facility] Summary Purpose Family History No Family History Records Found No data available for this section No data available for this section No Family History Records FoundNo Family History Records Found Advance Directives No Advanced Directives Records FoundNo Advanced Directives Records FoundNo Advanced Directives Records Found Additional Source Comments Care Team (unrecognized sect ion and content) Care Team Personnel Name: PHYSICIAN, NONE Position: Physician Member Role: Primary Care Physician Care Team Related Persons Name: PLEASE, ASK Name: PLEASE, ASK Care Team Personnel Name: PHYSICIAN, NONE Position: Physician Member Role: Primary Care Physician Care Team Related Persons Name: PLEASE, ASK Name: PLEASE, ASK Care Team Personnel Name: PHYSICIAN, NONE Position: Physician Member Role: Primary Care Physician Care Team Related Persons Name: PLEASE, ASK Name: PLEASE, ASK Care Team Personnel Name: PHYSICIAN, NONE Position: Physician Member Role: Primary Care Physician Care Team Related Persons Name: PLEASE, ASK Name: PLEASE, ASK Care Team Personnel Name: PHYSICIAN, NONE Position: Physician Member Role: Primary Care Physician Care Team Related Persons Name: PLEASE, ASK Name: PLEASE, ASK INFORMATION SOURCE (unrecogn ized section and content) DATE CREATED AUTHOR 09/03/2022 [facility] ([place]) DATE CREATED AUTHOR AUTHOR'S ORGANIZ ATION 06/14/2024 [facility] DATE CREATED AUTHOR AUTHOR'S ORGANIZ ATION 07/17/2024 [facility] Patient Care team informatio n (unrecognized section and content) Care Team Personnel Name: AHSAN REDMAN DO Member Role: Primary Care Physician Address: Address: [address] Care Team Related Persons Name: RAMONA OLEA Care Team Personnel Name: AHSAN REDMAN DO Member Role: Primary Care Physician Address: Address: [id number] [place] [address] Care Team Related Persons Name: RAMONA OLEA Name: PLEASE, ASK FOR RECORDS PERTAINING TO PATIENTS WHO ARE OR HAVE BEEN ENROLLED IN A CHEMICAL DEPENDENCY/SUBSTANCEABUSE PROGRAM, SOME INFORMATION MAY BE OMITTED. This clinical summary was aggregated from multiple sources. Caution should be exercised in using it in the provision of clinical care. This summary normalizes information from multiple sources, and as a consequence, information in this document may materially change the coding, format and clinical context of patient data. In addition, data may be omitted in some cases. CLINICAL DECISIONS SHOULD BE BASED ON THE PRIMARY CLINICAL RECORDS. [facility]. provides no warranty or guarantee of the accuracy or completeness of information in this document.
== END | disposition home or self-care (01) ==
LOC: CT 14:05
PROVIDERS: PCP Nurse Practitioner Family; Referring Provider Otolaryngology; Visit Provider Otolaryngology
DX: J33.0 Polyp of nasal cavity (principal)
CPT/HCPCS: 70486